=== PATIENT | female | born 1965 | race Caucasian/White ===

== ENCOUNTER 2021-01-17 13:45 | Outpatient (CLI) | payer OTHER, SELFPAY ==
--- NOTE | 2021-01-17 14:07 | MM_ITS ---
WS: [id number] BILATERAL SCREENING DIGITAL MAMMOGRAM WITH CAD HISTORY: SCREENING COMPARISON: None available. Bilateral CC and MLO views submitted. Computer aided detection analyzed. Breast composition: The breasts are heterogeneously dense, which may obscure small masses. No suspici ous masses, microcalcifications or architectural distortion. Benign appearing calcifications within t he LEFT breast. MM/[place] [id number] IMPRESSION: BI-RADS: 2-Benign FOLLOW UP: 1 Year Follow-up
== END 2021-01-17 13:46 | disposition home or self-care (01) ==
PROVIDERS: PCP Family Medicine; Visit Provider Family Medicine
DX: Z12.31 Encounter for screening mammogram for malignant neoplasm of breast (principal)
CPT/HCPCS: 77067

== ENCOUNTER 2022-02-17 08:28 | Inpatient (IN) | payer OTHER, SELFPAY ==
[2022-02-17] VITALS (44 sets, daily range): BP systolic 90–183; BP diastolic 55–108; PULSE 40–96; RESP 11–29; TEMP 36.3–36.8; O2SAT 92–100; BMI 24.1
--- NOTE | 2022-02-17 08:32 | ECG_ITS ---
[facility] Test Date: 2022-02-17 Pat Name: Esther Nicole Department: Room: ICU06 Gender: Female [employer]er: : 1965 Requested By: Govind Kovacs Order Number: [id number] Kev MD: Kwesi Ayers M.D. Measurements Intervals [place] Rate: 62 P: 59 W[place]: 150 QRS: 31 QRSD: 92 T: 75 QT: 425 QTc: 434 Interpretive Statements SINUS RHYTHM POSSIBLE LEFT ATRIAL ENLARGEMENT [-0.1mV P-WAVE IN V1/V2] INCOMPLETE RIGHT BUNDLE BRANCH BLOCK [90+ ms QRS DURATION, TERMINAL R IN V1/V2, 40+ ms S IN I/aVL/V4/V5/V6] SEPTAL MYOCARDIAL INFARCTION , OF INDETERMINATE AGE [40+ ms Q WAVE IN V1/V2] Compared to ECG 02/17/2022 08:55:19 Incomplete right bundle-branch block now present Myocardial infarct finding still present Electronically Signed On 02-17-2022 17:19:05 CDT by Kwesi Ayers M.D. [id number]
--- NOTE | 2022-02-17 09:03 | W.ED.CHESTPA ---
HPI - Chest Pain General: Chief Complaint: Chest Pain Stated Complaint: Chest Pressure Time Seen by Provider: 02/17/22 08:34 Source: patient Mode of arrival: ambulatory History of Present Illness: 56-year-old female presents emergency room complaining left-sided chest pain radiating into her back. She has intermittently had shortness of breath with activity relieved by rest she is also been having some chest discomfort relieved by rest as well its been escalating over the last week. Began yesterday and has gotten progressively worse since. She states previous episodes were just mostly short of breath now she is having actual chest discomfort. She has a history of mild COPD and smokes daily she has no known history of coronary disease no previous testing she is not diabetic. MD complaint: chest pain Onset (ago): hour(s) Timing of current episode: episodic Onset: during exertion Pain location: left chest Quality: aching and heaviness Relieving factors: rest Exacerbating factors: exertion Associated symptoms: Reports dyspnea and nausea; Deny abdominal pain, diaphoresis, fever(s), leg edema, palpitations, sense of impending doom, syncope or vomiting Treatment prior to arrival: none Review of Systems Const: Denies: fever(s) or diaphoresis ENMT: Denies: throat pain, ear or mastoid pain, nasal discharge or nasal congestion Card: Denies: palpitations or syncope Resp: Reports: dyspnea GI: Reports: nausea; Denies: abdominal pain or vomiting : Denies: flank pain, difficulty voiding, dysuria, urinary frequency or urinary urgency Skin/Breast: Denies: rash or pruritus [facility] ED PFSH: Medical History (Updated 02/17/22 @ 17:35 by Marvel Dexter DO) Hypertension Tobacco abuse Social History Smoking and tobacco status: current every day smoker Physical Exam Const: COMMON NORMALS: no acute distress GENERAL APPEARANCE: cooperative and comfortable ORIENTATION/CONSCIOUSNESS: Yes awake, Yes oriented to person, Yes oriented to place and Yes oriented to time HENMT: COMMON NORMALS: normocephalic, atraumatic and hearing grossly normal bilaterally HEAD & SCALP: normocephalic and atraumatic Resp: COMMON NORMALS: normal respiratory effort, No retractions, No use of accessory muscles and clear to auscultation bilaterally AUSCULTATION: clear to auscultation bilaterally Cardio: COMMON NORMALS: regular rate, regular rhythm and No murmurs present (Cardio) RATE: regular rate RHYTHM: regular rhythm GI: COMMON NORMALS: Soft to palpation and No hepatosplenomegaly present AUSCULTATION: Yes normoactive bowel sounds PALPATION: Yes Soft to palpation, No Tenderness to palpation present (GI), No Guarding due to palpation present (GI) and Yes No hepatosplenomegaly present Extremity: COMMON NORMALS: normal to inspection, capillary refill normal, no clubbing, cyanosis or edema, no calf tenderness and no pedal edema Neuro: SENSORIUM/ORIENTATION: Yes oriented to person, Yes oriented to place and Yes oriented to time Skin: COMMON NORMALS: no rashes or lesions noted GENERAL SKIN EXAM: no rashes or lesions noted Course Vital Signs: Vital signs: Vital Signs Temperature 97.6 F 02/17/22 14:00 Pulse Rate 77 02/17/22 16:30 Respiratory Rate 15 02/17/22 16:30 Blood Pressure 127/77 02/17/22 16:30 Pulse Oximetry 96 02/17/22 16:30 Oxygen Delivery Me thod 02/17/22 16:30 Oxygen Flow Rate 3 02/17/22 16:30 MDM - Chest Pain Medical Decision Making She is having active chest pain with ST elevation in the anterior leads and inferior reciprocal changes not fully meet criteria but did call a STEMI alert nonetheless because of her active chest discomfort her first troponin is marked elevated Dr. Haynes has seen the patient in the emergency room concurs because of her onset of symptoms and history as well as EKG changes she should go to emergent cath he assumed care patient was treated as a STEMI in the emergency room including receiving Plavix and heparin, aspirin loading doses. Medical Records I reviewed the patient's medical records. Lab Data I reviewed the patient's lab results. : 02/17/22 16:21 02/17/22 08:57 Laboratory Results WBC 14.7 10^3/uL (4.0-10.0) H 02/17/22 08:57 RBC 5.60 10^6/uL (4.1-5.3) H 02/17/22 08:57 Hgb 17.4 g/dL (11.5-15.3) H 02/17/22 08:57 Hct 50.8 % (37.0-47.0) H 02/17/22 08:57 MCV 90.7 fl (81-99) 02/17/22 08:57 MCH 31.1 pg (28.0-34.0) 02/17/22 08:57 MCHC 34.3 g/dL (30.0-36.0) 02/17/22 08:57 RDW 13.1 % (12.1-15.1) 02/17/22 08:57 Plt Count 289 10^3/cmm (130-400) 02/17/22 08:57 MPV 10.6 fL (7.4-10.4) H 02/17/22 08:57 Neut % (Auto) 79.9 % 02/17/22 08:57 Lymph % (Auto) 12.2 % 02/17/22 08:57 [place] % (Auto) 6.4 % 02/17/22 08:57 Eos % (Auto) 0.5 % 02/17/22 08:57 Baso % (Auto) 0.6 % 02/17/22 08:57 Neut # (Auto) 11.73 10^3/uL (1.8-7.7) H 02/17/22 08:57 Lymph # (Auto) 1.8 10^3/uL (0.8-4.8) 02/17/22 08:57 [place] # (Auto) 0.9 10^3/uL (0.2-0.9) 02/17/22 08:57 Eos # (Auto) 0.1 10^3/uL (0.0-0.8) 02/17/22 08:57 Baso # (Auto) 0.1 10^3/uL (0.0-0.1) 02/17/22 08:57 Nucleated RBC % (auto) 0 % 02/17/22 08:57 Nucleated RBCs # 0.0 /100WBC 02/17/22 08:57 Sodium 134 mmol/L (136-145) L 02/17/22 08:57 Potassium 3.5 mmol/L (3.5-5.1) 02/17/22 08:57 Chloride 96 mmol/L (98-107) L 02/17/22 08:57 Carbon Dioxide 24 mmol/L (22-29) 02/17/22 08:57 Anion Gap 17.5 (5-19) 02/17/22 08:57 BUN 15 mg/dL (6-20) 02/17/22 08:57 Creatinine 0.8 mg/dL (0.5-0.9) 02/17/22 08:57 GFR Calculation 73.9 mL/min (90-130) L 02/17/22 08:57 Glucose 119 mg/dL (65-115) H 02/17/22 08:57 Calculated Osmolality 280 mOsm/kg (285-295) L 02/17/22 08:57 Calcium 10.3 mg/dL (8.5-10.5) 02/17/22 08:57 Total Bilirubin 0.5 mg/dL (0.15-1.2) 02/17/22 08:57 AST 72 U/L (0-32) H 02/17/22 08:57 ALT 25 U/L (0-33) 02/17/22 08:57 Alkaline Phosphatase 132 U/L (35-105) H 02/17/22 08:57 Troponin T Baseline 470 ng/L (0-10) H* 02/17/22 08:57 NT-Pro-B Natriuret Pep 1921 pg/mL (0-125) H 02/17/22 08:57 Total Protein 8.6 g/dL (6.6-8.7) 02/17/22 08:57 Albumin 4.9 g/dL (3.5-5.2) 02/17/22 08:57 Globulin 3.7 g/dL (1.3-4.6) 02/17/22 08:57 Discharge Plan Discharge Patient Disposition: Admitted As Inpatient Admit Provider: Kwesi Ayers Clinical Impression: ST elevation myocardial infarction (STEMI), Hypertension Condition: Stable Coding Level of Care Code ED Adoption Agent for Jono Whatley
--- NOTE | 2022-02-17 09:07 | XACV_ITS ---
Exam Room: [facility] Ht: 165 cm Wt: 66 kg BSA: 1.75 m2 Gender: Female : 1965 Any Known Allergies: No known allergies Exam Priority: Routine Procedure(s): Procedure Description: Diagnostic procedure Procedure Description: PCI procedure Procedure Description: PTCA Procedure Description: Coronary Angiography Diagnostic Cath Status: Emergency Diagnostic Findings * Left Anterior Descending has mild luminal irregularities.. * Circumflex has mild to moderate 40% mid vessel stenosis. * 2nd Diagonal: moderate to severe 70% stenosis, NUVIA: 3 flow. * INDICATION: 56 year old female with past medical history of tobacco abuse, hypertension who has presented to the hospital with 1 day of on and off chest pain. She says it is severe and radiates to the back. EKG shows dynamic ST changes in anteroseptal leads and with ST depressions in inferior leads. Didnot meet STEMI criteria but given patient's dynamic EKG changes and ongoing chest pain, decision was made to emergently perform cardiac cath with possible percutaneous coronary intervention. * 1st Diagonal: subtotal occlusion, NUVIA: 3 flow. Heavily calcified vessel. * Left Main has no disease. * Proximal Right Coronary Artery: obstructive 70% stenosis, NUVIA: 3 flow. * Distal Right Coronary Artery: significant 80% stenosis, NUVIA: 3 flow. * Coronary angiography shows right dominance. PCI Status: Emergency PCI Indication: PCI for high risk Non-STEMI or unstable angina Interventional Findings * Procedure detail: Patient is left main artery with XB 3.0 guide catheter. IV heparin was administered to maintain ACT above 250 s. We advanced guidewire into diagonal artery that appeared to be the culprit for dynamic EKG changes/NSTEMI. However it was heavily calcified vessel. No balloon could be advanced. We used a guide liner for support as well. Eventually were able to cross partially with a 1.5 x 6 mm balloon. With inflation patient's diagonal artery had a dissection and loss of blood flow. After this no further equipment could be advanced. As she was hemodynamically stable, we decided to treat diagonal artery medically. We initially decided to perform PCI of RCA however after engagement of guide, it appeared it was calcified artery as well and will need arthrectomy. We decided to stage PCI of the RCA. Patient left the Working Second Hand in a stable condition.. * 1st Diagonal: 99% stenosis treated with a AB MINI TREK 2.00X12 RX BALLOON, and AB MINI TREK 1.50X6 RX BALLOON. 0% residual stenosis, NUVIA: 3 flow. Conclusions 1. Critical stenosis of 2. first diagonal artery 3. . 4. Loss of residual flow after balloon angioplasty secondary to dissection of the vessel. 5. CT surgery was consulted at [facility], and case discussed. Recommendation was to medically treat diagonal artery given patient's stability. Medical therapy. 6. Severe proximal and distal RCA stenosis. Will perform staged PCI with arthrectomy in 2 days. 7. 1st Diagonal was treated with a Balloon, and Balloon. Recommendations * Continue aspirin and Plavix. * Nitro drip. * Transferred to ICU. If has arrhythmias, * will put on amiodarone/lidocaine drip. * We will plan on performing RCA PCI as a staged procedure in 1 to 2 days. * Continue anticoagulation. Interventional RX Recommendation: PCI w/o planned CABG Diagnostic RX Recommendation: PCI w/o planned CABG Anticoagulation: Heparin Pressures Phase:Rest AO : 172 / 102 ( 133 ) @ 10:24:00 AM 122 / 70 ( 88 ) @ 10:32:00 AM 163 / 94 ( 124 ) @ 10:48:00 AM 187 / 115 ( 149 ) @ 10:59:00 AM Clinical Evaluation EBL: 5mL-10mL Procedural Details Pre-Procedure Time Out. Identified patient by full name and date of as verbalized by the patient/guarantor. Does the consent match the physician's order: N/A Emergent; Informed Consent not obtained due to time critical life threat. Accurate & Complete Informed Consent: N/A Emergent; Informed Consent not obtained due to time critical life threat. Inpatient/Outpatient History & Physical on Chart: N/A Emergent; Informed Consent not obtained due to time critical life threat. If H&P is completed, is and addenduem needed: N/A Emergent; Informed Consent not obtained due to time critical life threat; If yes, is the addendum complete: N/A Emergent; Informed Consent not obtained due to time critical life threat. Visualize and Verify Site with Patient/Guarantor: N/A. Relevant Radiology Images available: N/A Emergent; Informed Consent not obtained due to time critical life threat. Pre-op teaching completed and patient verbalized understanding. The risks, benefits, and alternatives of sedation and/or procedure were discussed by physician. The patient agrees to continue. Procedure started. [facility] Clinical Fraility Score: 3: Managing Well. Working Second Hand Indications: ACS > 24 hours. Chest Pain Symptom Assessment: Typical Angina Symptoms. Cardiovascular Instability: Yes, if yes, Persistant Ischemic Symptoms. Correct patient, site and procedure confirmed by cath team. Current diagnosis: NSTEMI. PERRLA. 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 Lungs clear x 5 lobes. IV Site on Arrival: 18 gauge in the right anticubital. IV Site on Arrival: 18 gauge in the left anticubital. IV Fluids: 0.9% NaCl at KVO. 0 mL infused prior to labor economics teacher. Pre Procedural Pulses: bilateral dorsalis pedis was 2+. Pre Procedural Pulses: bilateral posterior tibial was 2+. Pre Procedural Pulses: bilateral radial was 3+. Oxygen started at 2liters/min via nasal canula. right groin was prepped with chloroprep then draped in the usual sterile fashion. right radial was prepped with chloroprep then draped in the usual sterile fashion. Physician notified. Baseline sample Acquired. HR: 83 BPM. Patient's family in the Working Second Hand waiting room. Dr. Ayers will update at the completion of the procedure. Equipment: 6F - Radial. Cardiac Cath Pack. ACIST Manifold Kit Model BT 2000. Heparinized Saline (2 units/mL), 1000 mL bag. Physician arrived. Physician scrubbed in. Immediate Pre-Procedure Time Out. Correct Patient: N/A Emergent; Informed Consent not obtained due to time critical life threat; Correct Procedure: N/A Emergent; Informed Consent not obtained due to time critical life threat; Correct Site: N/A Emergent; Informed Consent not obtained due to time critical life threat; Correct Patient Position: N/A Emergent; Informed Consent not obtained due to time critical life threat; Correct Supplies: N/A Emergent; Informed Consent not obtained due to time critical life threat; Dried Flammable Prep: N/A Emergent; Informed Consent not obtained due to time critical life threat; Blood Products Available: N/A Emergent; Informed Consent not obtained due to time critical life threat;. Lidocaine 1% infiltrated to the right radial. Arterial access obtained. A 5 slovenian TIG catheter in over the exchange wire. Multiple views taken of left coronary artery. Current Diagnosis : STEMI. Catheter redirected to the RCA. Multiple views taken of right coronary artery. Catheter removed over the exchange wire. Add inventory: Endoflator, Exchange wire, Runthrough Guidewire. Catheter removed over the exchange wire. 6 slovenian XB 3 guide catheter was inserted over the exchange wire. Runthrough guidewire was advanced through the guide catheter to lesion in the diaganol. AB Trek 2.5 x 12 balloon in and unable to advance, removed. Inflation number : 1 A AB MINI TREK 2.00X12 RX BALLOON was prepped and advanced across the 1st Diag , then inflated to 6 SULEMAN for 0:19 seconds. Balloon out. Guideliner in. PCI Indication : PCI for high risk Non-STEMI or unstable angina. AB Trek 2.5 x 12 balloon in and unable to advance, removed. Guideliner pulled back into the guide. Baseline troponin of 470 was reported to romero nurse from the lab. Dr. Ayers made aware. Inflation number : 2 A AB MINI TREK 1.50X6 RX BALLOON was prepped and advanced across the 1st Diag , then inflated to 10 SULEMAN for 0:22 seconds. Inflation number: 3 The AB MINI TREK 1.50X6 RX BALLOON was reinflated across the 1st Diag, to 10 SULEMAN for 0:23 seconds. Balloon out. Runthrough guidewire and Guideliner out. AP pads placed on the patient. Results checked. Guide catheter out over the exchange wire. 6 slovenian JR 4 guide catheter was inserted over the exchange wire. Runthrough guidewire was advanced through the guide catheter to lesion in the distal LAD. Flushing the sheath periodically with Heparinized Saline flush to maintain patency. Wire out. Guide catheter out over the exchange. A 5 slovenian TIG catheter in over the exchange wire. Multiple views taken of left coronary artery. Catheter disengaged from the LCA. Dr. Ayers scrubbed out to consult CT surgery. Dr. Ayers scrubbed back in. Catheter removed over the exchange wire. Dr. Ayers scrubbed back out. Patient's family updated. A TR Band was successful obtaining hemostatsis at the Right Radial artery insertion site. TR band placed. Hemostasis obtained. Post Procedure: Pulses reassessed and unchanged. PERRLA. 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 No VTE prophylaxis required. Medication's Wasted: Lidocaine 1% = 4 mL. Medication's Wasted: Nitro = 49.8 mg. Medication's Wasted: Heparin = 7000 units. Medication's Wasted: Morphine = 2 mg. Medication's Wasted: Versed = 1 mg. Total IV fluids: 75 mL. PCI Indication: NSTE. Complications: none. Estimated blood loss: 5mL-10mL. Responsiveness - Normal response to verbal stimuli; alert and oriented, PERRLA. Post-op diagnosis: POBA of the 1st diagonal, Stenosis of the CX and RCA. Will stage RCA interention. Airway - Unaffected, no intervention required; spontaneous ventilation. Circulation: W/N/L, pulses unchanged. Nausea/Vomiting: No. Procedure completed. Patient transferred by wheelchair to ICU. Vital chart was stopped. Access Site Site: Right Radial artery Sheath Size: 6 Fr Hemostasis Method: TR Band Hemostasis Success: Successful Procedure Medications Start: 9:23 AM Stop: 9:23 AM Medication: Versed Amount: 1 mg Route: I.V. Start: 9:23 AM Stop: 9:23 AM Medication: Fentanyl Amount: 25 mcg Route: I.V. Start: 9:23 AM Stop: 9:23 AM Medication: Heparin Amount: 5000 units Route: I.V. Start: 9:24 AM Stop: 9:24 AM Medication: Fentanyl Amount: 25 mcg Route: I.V. Start: 9:24 AM Stop: 9:24 AM Medication: Fentanyl Amount: 25 mcg Route: I.V. Start: 9:25 AM Stop: 9:25 AM Medication: Versed Amount: 1 mg Route: I.V. Start: 9:27 AM Stop: 9:27 AM Medication: Heparin Amount: 2000 units Route: I.V. Start: 9:37 AM Stop: 9:37 AM Medication: Versed Amount: 1 mg Route: I.V. Start: 9:52 AM Stop: 9:52 AM Medication: Fentanyl Amount: 25 mcg Route: I.V. Start: 9:59 AM Stop: 9:59 AM Medication: Nitrogylcerin Amount: 10 mcg/min Route: I.V. drip Start: 10:14 AM Stop: 10:14 AM Medication: Morphine Amount: 2 mg Route: I.V. Start: 10:15 AM Stop: 10:15 AM Medication: Nitrogylcerin Amount: 15 mcg/min Route: Myron pete I, the attending physician, have reviewed and verified all procedure medications. Yes, all medications given per verbal order History/Risk Factors Hypertension: No Dyslipidemia: No Peripheral Arterial Disease (PAD): No Myocardial Infarction (AR): No Obesity: No Renal Disease: No Prior Interventions PCI: No CABG: No Valve Surgery: No Report Signatures Finalized by Kwesi Ayers MD on 02/20/2022 01:42 PM
[2022-02-17] MEDS: aspirin 325 mg Tablet PO (09:09)
[2022-02-17 09:10] LABS: Basophils # 0.1 10^3/uL (0.0-0.1); Basophils % 0.6 %; Eosinophils # 0.1 10^3/uL (0.0-0.8); Eosinophils % 0.5 %; Hematocrit 50.8 % (37.0-47.0); Hemoglobin 17.4 g/dL (11.5-15.3); Lymphocytes # 1.8 10^3/uL (0.8-4.8); Lymphocytes % 12.2 %; Mean Corpuscular HGB Conc 34.3 g/dL (30.0-36.0); Mean Corpuscular Hemoglobin 31.1 pg (28.0-34.0); Mean Corpuscular Volume 90.7 fl (81-99); Mean Platelet Volume 10.6 fL (7.4-10.4); Monocytes # 0.9 10^3/uL (0.2-0.9); Monocytes % 6.4 %; Neutrophils # 11.73 10^3/uL (1.8-7.7); Neutrophils % 79.9 %; Nucleated Red Blood Cells % 0 %; Platelet Count 289 10^3/cmm (130-400); Red Cell Distribution Width 13.1 % (12.1-15.1); White Blood Count 14.7 10^3/uL (4.0-10.0)
[2022-02-17] MEDS: clopidogrel 300 mg Tablet PO ×2 (09:10)
[2022-02-17] MEDS: sodium chloride 0.9% 1,000 ML 999 ML IV (09:11)
--- NOTE | 2022-02-17 09:14 | PM.HP ---
Providers/Chief Complaint Admitting Physician: Kwesi Ayers MD/Interventional Cardiology Primary Care Provider: Beto Peterson MD Chief Complaint: Chest Pressure History of Present Illness Esther Nicole is a 56 year old female with past medical history of tobacco abuse, hypertension who has presented to the hospital with 1 day of on and off chest pain. She says it is severe and radiates to the back. EKG shows dynamic ST changes in anteroseptal leads and with ST depressions in inferior leads. STEMI alert was ordered. Patient still having chest discomfort. Blood pressure is elevated. No prior cardiac history. Review of Systems Narrative: CONSTITUTIONAL: No fever chills weight loss or gain or night sweats. [] HEENT: Normocephalic, atraumatic.[] RESPIRATORY: No cough, sputum, hemoptysis or wheezing.[] CARDIOVASCULAR: Chest pain GI: no nausea vomiting diarrhea. [] PNEUMATIC TESTER: No numbness, tingling, weakness or loss of function in any part of the body. [] MUSCULOSKELETAL: No knee or joint pain or rashes. [] Medications/Allergies Allergies Allergy/AdvReac Type Severity Reaction Status Date / Time sulfacetamide Allergy ALGY-Rash Verified 02/17/22 08:46 [From Sulfamide] PFSH Acute PFSH: Social History Smoking and tobacco status: current every day smoker Vitals/I&O/Wt Last Vital Signs Temp 97.5 F L 02/17/22 08:46 Pulse 82 02/17/22 08:46 Resp 14 02/17/22 08:46 BP 183/95 02/17/22 08:46 Pulse Ox 98 02/17/22 08:46 O2 Del Method 02/17/22 08:46 Weight last 48 hrs Weight 145 lb Physical Exam Narrative: GENERAL: Patient is alert, awake and oriented x3. [] NECK: No jugular vein distension. [] HEENT: No cyanosis. No icterus. No pallor. [] HEART: Regular S1 and S2. LUNGS: Clear to auscultate bilaterally. [] ABDOMEN: Soft, nontender and nondistended. Positive bowel sounds. No guarding, rebound or tenderness. [] CENTRAL NERVOUS SYSTEM: Grossly nonfocal. [] EXTREMITIES: Lower extremities with no edema bilaterally. Pulses palpable in the lower extremities, both dorsalis pedis and posterior tibial. [] Data : 02/17/22 08:57 02/17/22 08:57 A&P Assessment and plan (1) NSTEMI (non-ST elevated myocardial infarction): (2) Hypertension: (3) Tobacco abuse: Plan Patient has been having chest pain symptoms has been having on and off chest pain symptoms since yesterday. EKG does not meet STEMI criteria but has dynamic changes. Initial troponin is over 400. Patient will need emergent coronary angiogram. Risks and benefits of the procedure discussed with the patient. She understands and wants to proceed. Continue aspirin and plavix We will obtain echocardiogram Attestations Medical Necessity Statement*: Expected to cross 2 midnights. Patient has presented with atypical chest pain and dynamic EKG changes. Going for emergent cardiac catheterization with possible percutaneous coronary intervention Coding Level of Care Code Acute Gas Turbine Mechanic for [facility] Diagnoses NSTEMI (non-ST elevated myocardial infarction) I21.4 Hypertension I10 Tobacco abuse Z72.0
--- NOTE | 2022-02-17 09:14 | PC.NURSE ---
Pt arrived to ED via POV with c/o left sided chest pain that was present when she woke up yesterday. reports felt like heart burn so she took Rolaids without relief, started wheezing so she used her inhaler and felt worse. today she went to the walk in clinic and was given medications for acid reflux. reports today, chest pain is a dull 8/10. denies dyspnea, reports nausea. pt states she takes 81mg ASA daily. Dr. Dexter at bedside with multiple staff members. STEMI called by Dr. Dexter. 2 IVs started. IV fluids pulled and handed to chemical laboratory scientist staff. Pt taken to chemical laboratory scientist.
[2022-02-17 09:43] LABS: Alanine Aminotransferase 25 U/L (0-33); Albumin Level 4.9 g/dL (3.5-5.2); Alkaline Phosphatase 132 U/L (35-105); Anion Gap 17.5 (5-19); Aspartate Amino Transferase 72 U/L (0-32); Blood Urea Nitrogen 15 mg/dL (6-20); Calcium 10.3 mg/dL (8.5-10.5); Carbon Dioxide 24 mmol/L (22-29); Chloride 96 mmol/L (98-107); Globulin 3.7 g/dL (1.3-4.6); Glomerular Filtration Rate 73.9 mL/min (90-130); Glucose 119 mg/dL (65-115); NT Pro B Type Natriuretic Pept 1921 pg/mL (0-125); Osmolality Calculated 280 mOsm/kg (285-295); Potassium 3.5 mmol/L (3.5-5.1); Sodium 134 mmol/L (136-145); Total Bilirubin 0.5 mg/dL (0.15-1.2); Total Protein 8.6 g/dL (6.6-8.7); Troponin(5th) Baseline 470 ng/L (0-10)
--- NOTE | 2022-02-17 10:32 | ECG_ITS ---
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 Measurements Intervals [place] Rate: 80 P: 69 ND: 147 QRS: 74 QRSD: 83 T: 82 QT: 382 QTc: 443 Interpretive Statements SINUS RHYTHM POSSIBLE RIGHT VENTRICULAR CONDUCTION DELAY [RSR (QR) IN V1/V2] SEPTAL MYOCARDIAL INFARCTION , PROBABLY RECENT [40+ ms Q WAVE IN V1/V2] ACUTE IN No previous ECG available for comparison Electronically Signed On 02-17-2022 17:24:39 CDT by Kwesi Ayers M.D. [id number]
[2022-02-17] MEDS: nitroglycerin drip 50 MG/250 ML PREMIX IV (10:35)
--- NOTE | 2022-02-17 10:40 | PC.NURSE ---
Pt arrives to ICU from slab tripper. Tr band noted on right wrist. Fingers purple and cool to touch, 2ml of air released, color and temp improved. Nitro gtt infusing at 15mcg/min, HTN noted on monitor, gtt increased to 18mcg/min. Pt denies any chest pain or other discomforts at this time.
[2022-02-17] MEDS: sodium chloride 0.9% 1,000 ML 100 ML IV ×2 (10:45→23:45)
--- NOTE | 2022-02-17 10:49 | USCV_ITS ---
Esther Nicole Age: 56 Gender: F : 1965 Exam Date: 02/17/2022 14:01 Ordering Phys: Kwesi Ayers M.D ([email or web address]) Technologist: Exam [place] [facility] [place]ication: icd stemi BP: 153 / 76 HR: 70 Rhythm: Sinus Technical Quality: Adequate MEASUREMENTS (Male / Female) Normal Values 2D ECHO LV Ejection Fraction MOD 2C 62.5 % LV Ejection Fraction 2C AL 64.1 % IVC Diameter 0.9 cm DOPPLER AV Peak Velocity 136.0 cm/s LVOT Peak Velocity 95.0 cm/s MV Area PHT 3.3 cm squared Mitral E to A Ratio 1.1 MV E' Velocity 90.0 cm/s TR Peak Velocity 146.0 cm/s TR Peak Gradient 8.5 mmHg TV Peak E Velocity 87.0 cm/s Right Atrial Pressure 3.0 mmHg Pulmonary Artery Systolic Pressu 11.5 mmHg PV Peak Velocity 136.0 cm/s FINDINGS Left Ventricle Technically limited quality echocardiogram because of poor ultrasonic windows. LV systolic function is borderline low with EF of 45 to 50%. Mildly hypokinetic anterolateral wall. Right Ventricle Normal in size and function Right Atrium Normal in size Left Atrium Normal in size Mitral Valve Mild mitral regurgitation. Aortic Valve Not well-visualized. Impella catheter is seen across aortic valve. Mild aortic regurgitation Tricuspid Valve Not well-visualized not well Pulmonic Valve Not well-visualized Pericardium Not well-visualized Aorta Grossly normal IVC Appears to be normal CONCLUSIONS Technically limited quality echocardiogram because of poor ultrasonic windows. LV systolic function is borderline low with EF of 45 to 50%. Mildly hypokinetic anterolateral wall. Valvular structures are not well-visualized Mild mitral regurgitation Mild aortic regurgitation is seen. Impella catheter is seen across aortic valve. It was suggested with echocardiogram guidance. No comparison studies are available Kwesi Ayers MD (Electronically Signed) Final Date: 17 February 2022 18:08 S
[2022-02-17] MEDS: atropine 1 mg/mL SDV 1 mL 0.5 MG IVP ×2 (11:15→11:30)
--- NOTE | 2022-02-17 11:19 | ECG_ITS ---
[facility] Test Date: 2022-02-17 Pat Name: Esther Nicole Department: Room: [facility] Gender: Female Roll Up Operator: : 1965 Requested By: Govind Kovacs Order Number: [id number] Kev MD: Kwesi Ayers M.D. Measurements Intervals Dewey Rate: 42 P: MS: QRS: 80 QRSD: 101 T: 100 QT: 521 QTc: 439 Interpretive Statements SINUS BRADYCARDIA WITH 2ND DEGREE AV BLOCK, 2:1 OR MOBITZ TYPE II MARKED ST ELEVATION, CONSIDER INFERIOR INJURY [MARKED ST ELEVATION W/O NORMALLY INFLECTED T-WAVE IN II/aVF] ACUTE AK Compared to ECG 02/17/2022 11:06:16 ST (T wave) deviation now present Sinus rhythm no longer present Incomplete right bundle-branch block no longer present Myocardial infarct finding still present Electronically Signed On 02-17-2022 17:23:50 CDT by Kwesi Ayers M.D. [id number]
--- NOTE | 2022-02-17 11:26 | XACV_ITS ---
Exam Room: [facility] Ht: 165 cm Wt: 66 kg BSA: 1.75 m2 Gender: Female : 1965 Any Known Allergies: No known allergies Exam Priority: Routine Procedure(s): Procedure Description: Diagnostic procedure Procedure Description: PCI procedure Procedure Description: Drug Eluting Coronary Stent Procedure Description: PTCA Procedure Description: Coronary Thrombectomy Procedure Description: Miscellaneous Procedure Description: Temporary Pacemaker Insertion Procedure Description: Perclose Procedure Description: ACT Procedure Description: Coronary Angiography Procedure Description: pVAD Diagnostic Cath Status: Emergency Diagnostic Findings * INDICATION: Patient underwent coronary angiogram 1-2 hours back which showed critical, heavily calcified diagonal artery stenosis and severe proximal to mid and distal RCA stenosis. We attempted PCI of diagonal artery. Wire was crossed however no other equipment would follow. Eventually we were able to put a small 1.5 mm balloon and diagonal artery. After balloon angioplasty, patient had a dissection of diagonal artery and lost flow. No other equipment could be advanced. I did discuss the case with CT surgeon, Dr. Quezada at [facility] about possible CT surgical intervention. After discussion, decision was made to medically treat the diagonal at this time. RCA also had calcified stenosis. We decided to intervene is a staged procedure with arthrectomy. * Patient was transferred to ICU. In the ICU she complained of chest pain. EKG showed complete heart block with transient ST elevation in inferior leads that resolved after administration of atropine. She became hypotensive and was given IV fluids. She was emergently took her to cardiac Radio Electronics Technician. Complete heart block resolved spontaneously. . * Left Main has mild luminal irregularities. Left circumflex artery was patent however is moderate to stenosis of mid segment. First diagonal artery that had a dissection previous procedure started regaining blood flow. Second diagonal artery has 70% stenosis. LAD has mild to moderate luminal irregularities of no significant stenosis. For full diagnostic report please refer to prior cardiac catheterization report from the same day. During her current procedure only 1 view was obtained to confirm patency of previously patent vessels.. * Proximal to Mid Right Coronary Artery: subtotal thrombotic occlusion, NUVIA: 3 flow. Thrombus formation was new compared to recent angiogram on the same day.. * Distal Right Coronary Artery to Distal Right Coronary Artery: significant 80% stenosis, NUVIA: 3 flow. * Coronary angiography shows right dominance. PCI Status: Emergency PCI Indication: Other Interventional Findings * Procedure detail: We obtained access in right common femoral artery. Using diagnostic JR4 catheter we obtained RCA angiogram. It showed proximal RCA had developed thrombus and was subtotally occluded. Given patient's transient hemodynamic instability and presence of NUVIA II flow in the artery, in addition to recently dissected diagonal artery, we decided to first place LV support device. We obtained access in left common femoral artery. It was preclosed with Perclose. We then we then inserted Impella into the LV. Access was also obtained in right common femoral vein for possible placement of temporary pacemaker given patient's transient complete heart block. However there was some difficulty placing temporary pacemaker and we decided to first proceed with PCI. We then engaged RCA with JR4 guide catheter. IV heparin was administered to maintain ACT above 250 s. 0.014 run-through guidewire was used to cross the stenosis and was advanced into the distal vessel. We used CAT Rx thrombectomy catheter to perform mechanical thrombectomy. We then predilated proximal RCA stenosis with 2.75 x 12 mm semicompliant balloon. This was followed by placement of 3.5 x 34 mm resolute Waqar drug-eluting stent. Same balloon was used to predilate distal RCA stenosis. We then placed 3.0 x 26 mm resolute Waqar drug-eluting stent to the distal RCA. At this time final angiogram was performed that showed excellent stent expansion, no residual stenosis and NUVIA-3 flow. Impella peel-away sheath was removed and Impella was sutured in place to go to ICU. Patient's rhythm was stable and she was hemodynamically stable. No further chest pain.. * Proximal to Mid Right Coronary Artery: 99% stenosis treated with a AB TREK 2.75X12 RX BALLOON, and MDT R WAQAR 3.5X34 BALTA. 0% residual stenosis, NUVIA: 3 flow. * Distal Right Coronary Artery to Distal Right Coronary Artery: 80% stenosis treated with a MDT R WAQAR 3.0X26 BALTA. 0% residual stenosis, NUVIA: 3 flow. Conclusions 1. Subtotal thrombotic occlusion of proximal RCA 2. status post successful revascularization with mechanical thrombectomy and 3. BALTA x1. Distal RCA treated with BALTA x1.. 4. Successful insertion of Impella support device given patient's recent dissection and shutdown of diagonal artery and current subtotal thrombotic occlusion of RCA with hemodynamic and rhythm instability. 5. Mid Right Coronary Artery was treated with a Balloon, and Drug Eluting Stent. 6. Distal Right Coronary Artery to Distal Right Coronary Artery was treated with a Drug Eluting Stent. Recommendations * Transfer to ICU. * Order echocardiogram to confirm Impella positioning. * Aspirin and Plavix. * Aggrastat drip for 4 hours. * High intensity statin therapy. Interventional RX Recommendation: PCI w/o planned CABG Diagnostic RX Recommendation: PCI w/o planned CABG Anticoagulation: Heparin Pressures Phase:Rest AO : 89 / 66 ( 77 ) @ 1:37:00 PM 75 / 58 ( 67 ) @ 1:42:00 PM Clinical Evaluation EBL: 30-40ml Procedural Details Procedure Consent Obtained. Admit Source: In Patient. Pre-Procedure Time Out. Identified patient by full name and date of as verbalized by the patient/guarantor. Does the consent match the physician's order: Yes. Accurate & Complete Informed Consent: Yes. Inpatient/Outpatient History & Physical on Chart: Yes. If H&P is completed, is and addenduem needed: N/A; If yes, is the addendum complete: N/A. Visualize and Verify Site with Patient/Guarantor: N/A. Relevant Radiology Images available: N/A. Pre-op teaching completed and patient verbalized understanding. The risks, benefits, and alternatives of sedation and/or procedure were discussed by physician. The patient agrees to continue. Procedure started. Current diagnosis: Unstable angina. Correct patient, site and procedure confirmed by cath team. Cardiovascular Instability: Yes, if yes, Persistant Ischemic Symptoms. Chest Pain Symptom Assessment: Typical Angina Symptoms. Radio Electronics Technician Indications: Worsening Angina. PERRLA. Strong, equal hand moving picture operator bilaterally. Lungs clear x 5 lobes. IV Site on Arrival: 18 gauge in the left anticubital. IV Site on Arrival: 18 gauge in the right anticubital. IV Fluids: 0.9% NaCl at KVO. 700 mL infused prior to laborer cutting tool. Pre Procedural Pulses: bilateral dorsalis pedis was 2+. Oxygen started at 2liters/min via nasal canula. right groin was prepped with chloroprep then draped in the usual sterile fashion. left groin was prepped with chloroprep then draped in the usual sterile fashion. Physician notified. Physician notified. Baseline sample Acquired. HR: 74 BPM. Physician arrived. Physician scrubbed in. Immediate Pre-Procedure Time Out. Correct Patient: Yes; Correct Procedure: Yes; Correct Site: Yes; Correct Patient Position: Yes; Correct Supplies: Yes; Dried Flammable Prep: Yes; Blood Products Available: N/A;. Lidocaine 1% infiltrated to the right groin. Arterial access obtained with micropuncture set. A 5 comoran JR4 catheter in over wire. Temporary pacemaker inserted. Temporary pacemaker removed. Lidocaine 1% infiltrated to the left groin. Arterial access obtained with micropuncture set. Multiple views taken of right coronary artery. 6Fr sheath removed, 1st Perclose loaded over the wire. Lot # [id number] Exp 09/01/2023. Anesthesia here to perform sedation d/t pt restless and unable to follow commands appropriately. 2nd Perclose inserted over the wire to L femoral side. Lot# [id number] Exp 09/01/2023. 6Fr Sheath reinserted into L femoral vein. Standard Wire out. Impella wire inserted into L femoral side. 6Fr sheath removed from L femoral side, 8Fr dilator inserted. 8Fr dilator removed from L femoral side, 12 Fr dilator inserted. 12 Fr dilator removed from L femoral side. 12 Fr sheath inserted into L femoral site. Wire removed. ACT drawn. Results 186 seconds. Therapeutic limits - pre-heparin administration 90-150 seconds and monitoring heparin during a vascular procedure >250 seconds. A 5 comoran Angled Pig catheter in over wire and positioned across the valve. Standard wire removed. Impella wire inserted. Catheter out. Impella CP inserted. Impella wire removed. ACT drawn. Results 306 seconds. Therapeutic limits - pre-heparin administration 90-150 seconds and monitoring heparin during a vascular procedure >250 seconds. Impella CP adequately postioned across the valve with a flow of 2.6 l/min. 6 comoran JR 4 guide catheter was inserted over the wire to R femoral artery access site. Runthrough guidewire was advanced through the guide catheter to lesion in the mid RCA. Cat RX device inserted into the RCA over the wire. Coronary thrombectomy performed to RCA. Results checked. Balloon inserted to lesion in the mid RCA. Inflation number : 1 A AB TREK 2.75X12 RX BALLOON was prepped and advanced across the Mid RCA , then inflated to 14 SULEMAN for 0:10 seconds. Inflation number: 2 The AB TREK 2.75X12 RX BALLOON was reinflated across the Mid RCA, to 14 SULEMAN for 0:12 seconds. Inflation number: 3 The AB TREK 2.75X12 RX BALLOON was reinflated across the Mid RCA, to 14 SULEMAN for 0:11 seconds. Balloon out. Inflation Number : 4 A MDT R WAQAR 3.5X34 BALTA -Lot Number# [id number] Exp 11/12/2024 was prepped and advanced across the Mid RCA. The stent was deployed at 12 SULEMAN for 0:15 seconds. Stent inserted to lesion in the mid RCA. Stent inserted to lesion in the distal RCA. Inflation Number : 1 A MDT R WAQAR 3.0X26 BALTA -Lot Number# [id number] Exp 01/24/2024 was prepped and advanced across the Dist RCA. The stent was deployed at 12 SULEMAN for 0:20 seconds. Stent balloon out over wire. Results checked. Results checked. Wire out. ACT drawn. Results reading high.Rechecking ACT. Standard wire inserted. Catheter removed. A 5 comoran JL4 catheter in over wire. Multiple views taken of left coronary artery. Catheter removed over the standard wire. ACT drawn. Results 316 seconds. Therapeutic limits - pre-heparin administration 90-150 seconds and monitoring heparin during a vascular procedure >250 seconds. Safe sheath peeled away from Impella device. Impella device sutured into place to L femoral. A Suture was successful obtaining hemostatsis at the Right Femoral artery insertion site. A Suture was successful obtaining hemostatsis at the Right Femoral vein insertion site. Sheath(s) sutured into position with 2-0 silk and sterile 4x4's and Op-site applied over the site. No oozing or signs and symptoms of hematoma noted. Arterial sheath flushed and connected to tranducer and pressure bag with heparinized saline. Post Procedure: Pulses reassessed and unchanged. No VTE prophylaxis required. PERRLA. Strong, equal hand moving picture operator bilaterally. Medication's Wasted: Other = Fentanyl 50 mcg. Medication's Wasted: Other = Versed 1 mg. Total IV fluids: 1068 mL. PCI Indication: New Onset Angina. Post-op diagnosis: Subtotal Thrombotic Occlusion of RCA. Complications: none. Estimated blood loss:30-40ml. Responsiveness - Normal response to verbal stimuli; alert and oriented, PERRLA. Airway - Unaffected, no intervention required; spontaneous ventilation. Circulation: W/N/L, pulses unchanged. Nausea/Vomiting: No. Procedure completed. Patient transferred by bed to ICU. Patient's family updated. Vital chart was stopped. Access Site Site: Right Femoral artery Sheath Size: 6 Fr Hemostasis Method: Suture Hemostasis Success: Successful Site: Right Femoral vein Sheath Size: 6 Fr Hemostasis Method: Suture Hemostasis Success: Successful Site: Left Femoral vein Sheath Size: 6 Fr Hemostasis Success: Successful Procedure Medications Start: 11:43 AM Stop: 11:43 AM Medication: Versed Amount: 1 mg Route: I.V. Start: 11:48 AM Stop: 11:48 AM Medication: Versed Amount: 1 mg Route: I.V. Start: 11:59 AM Stop: 11:59 AM Medication: Fentanyl Amount: 50 mcg Route: I.V. Start: 12:03 PM Stop: 12:03 PM Medication: Heparin Amount: 2000 units Route: I.V. Start: 12:14 PM Stop: 12:14 PM Medication: Heparin Amount: 1000 units Route: I.V. Start: 12:15 PM Stop: 12:15 PM Medication: Heparin Amount: 4000 units Route: I.V. Start: 12:29 PM Stop: 12:29 PM Medication: 0.9% Saline Amount: 250 ml Route: I.V. bolus Start: 12:46 PM Stop: 12:46 PM Medication: Heparin Amount: 2000 units Route: I.V. I, the attending physician, have reviewed and verified all procedure medications. Yes, all medications given per verbal order History/Risk Factors Hypertension: No Dyslipidemia: No Peripheral Arterial Disease (PAD): No Myocardial Infarction (AZ): No Obesity: No Renal Disease: No Prior Interventions PCI: No CABG: No Valve Surgery: No Report Signatures Finalized by Kwesi Ayers MD on 02/20/2022 02:05 PM
[2022-02-17 11:40] LABS: Troponin 5 2HR 495.6 ng/L (0-10)
--- NOTE | 2022-02-17 11:40 | PC.NURSE ---
At 1115 Bradycardia noted on monitor 42 bpm. Pt asypmtomatic. While looking at monitor , heart decreases to 29, then back to 35. Dr Ayers notified via telephone, STAT Atropine 0.5mg orders. Atropine given. B/P drops, SBP 55, Nitro gtt off, IV fluids wide open. Dr Ayers now at bedside. Pt denying chest pain. Saying she still needs to pee. Crash cart at bedside. Heart rate 40, SBP 79. Bedpan provided, pt is insisting she needs to urinate. Pt becoming symptomatic: resp. shallow, becoming lethargic. Another 0.5mg Atropine admin. Pt stating she needs the head of the bed up so she can breath. Nasal cannula applied at 3lpm/NC. Pt unable to urinate. Eldridge ordered and 16fr eldridge inserted, no urine return. labor arbitrator crew here, pt to labor contract analyst. remained at bedside throughout.
[2022-02-17 11:41] LABS: Troponin 5 2HR Delta 25.6 ABS# (0-10)
--- NOTE | 2022-02-17 13:20 | PC.NURSE ---
Report given to RENAY Fine. Care transferred.
--- NOTE | 2022-02-17 13:48 | PC.NURSE ---
Pt arrives back to ICU from phlebotomist medical lab assistant. Impella noted , left groin oozing. No hematoma noted. Impella marked at 83. Impella Rep,Jimenez, at bedside. Arterial sheath noted in right groin, no hematoma or bleeding noted at tis site. Sinus rhythm on monitor.
--- NOTE | 2022-02-17 14:15 | PC.NURSE ---
Left groin site very oozy, Dressing changed and pressure held by Brandi Gaona rep. PTT ordered.
[2022-02-17] MEDS: metoprolol tartrate 25 mg Tablet PO (15:23)
[2022-02-17 15:35] LABS: Troponin 5 6HR Delta 223.3 ng/L (0-12)
[2022-02-17 15:36] LABS: Troponin 5 6HR 693.3 ng/L (0-10)
--- NOTE | 2022-02-17 16:00 | PC.NURSE ---
Left groin continues to bleed, Pedal pulses weak but palpable. Bed line and dressing change provided. Pressure dressing applied.
[2022-02-17 16:26] LABS: Partial Thromboplastin Time > 250.0 SECONDS (23.9-36.7)
[2022-02-17 16:47] LABS: Hematocrit 44.8 % (37.0-47.0); Hemoglobin 15.1 g/dL (11.5-15.3)
--- NOTE | 2022-02-17 17:00 | PC.NURSE ---
Dr Ayers, now on unit. Changed dressing to left groin, femstop applied. May remove when PTT less than 75.
--- NOTE | 2022-02-17 17:04 | P.MISC_ITS ---
Miscellaneous Note Purpose of Documentation: Brief progress note Note: Patient underwent coronary angiogram which showed critical, heavily calcified diagonal artery stenosis and severe proximal to mid and distal RCA stenosis. We attempted PCI of diagonal artery. Wire was crossed however no other equipment would follow. Eventually we were able to put a small 1.5 mm balloon and diagonal artery. After balloon angioplasty, patient had a dissection of diagonal artery and lost flow. No other equipment could be advanced. I did discuss the case with CT surgeon, Dr. Quezada at [facility] about possible CT surgical intervention. After discussion, decision was made to medically treat the diagonal at this time. RCA also had calcified stenosis. We decided to intervene is a staged procedure with arthrectomy. Patient was transferred to ICU. In the ICU she complained of chest pain. EKG showed complete heart block with transient ST elevation in inferior leads that resolved after administration of atropine. She became hypotensive and was given IV fluids. She was emergently took her to cardiac Hydrostatic Tubing Tester. Complete heart block resolved spontaneously. Coronary angiogram was performed that showed thrombus formation and proximal to mid RCA. Impella was placed as patient was becoming transiently hypotensive, had occluded diagonal artery and developed thrombus of RCA. She was also drowsy,feeling very weak and agitated. Anesthesia team was called to help with sedation. We then proceeded with revascularization of RCA with BALTA x2. Impella was kept in place as patient is having ongoing diagonal artery territory infarct. Patient's blood pressure stabilized. She was chest pain-free postprocedure. Will monitor hemoglobin and labs closely.
[2022-02-17 17:46] LABS: Partial Thromboplastin Time 60.9 SECONDS (23.9-36.7)
--- NOTE | 2022-02-17 17:51 | PC.NURSE ---
PTT finally resulted: greater than 250. Dr Ayers notified of high level and continued bleeding at site.
--- NOTE | 2022-02-17 18:45 | PC.NURSE ---
Dr Ayers, now at bedside, Femstop loosened by Dr Ayers. PTT 60.9. May remove in one hour.
--- NOTE | 2022-02-17 18:55 | PC.NURSE ---
IMPELLA alarm: Suction. Decreased flow to P-6. Suction problem resolved.
--- NOTE | 2022-02-17 19:10 | PC.NURSE ---
Bedside report completed with Tia Palacios RN
[2022-02-17 19:11] LABS: Basophils # 0.1 10^3/uL (0.0-0.1); Basophils % 0.5 %; Eosinophils % 0.2 %; Hemoglobin 14.4 g/dL (11.5-15.3); Lymphocytes # 1.1 10^3/uL (0.8-4.8); Mean Corpuscular HGB Conc 34.3 g/dL (30.0-36.0); Mean Corpuscular Hemoglobin 31.2 pg (28.0-34.0); Mean Corpuscular Volume 90.9 fl (81-99); Monocytes # 1.3 10^3/uL (0.2-0.9); Neutrophils # 15.72 10^3/uL (1.8-7.7); Neutrophils % 85.6 %; Nucleated Red Blood Cells % 0 %; Platelet Count 284 10^3/cmm (130-400); Red Blood Count 4.62 10^6/uL (4.1-5.3); Red Cell Distribution Width 13.3 % (12.1-15.1); White Blood Count 18.4 10^3/uL (4.0-10.0)
--- NOTE | 2022-02-17 19:35 | PC.NURSE ---
Shift Note: Pt has had an eventful day. She remains alert and oriented She came back from lab rep this am with a TR band and nitro gtt at 15mcg/min. BP was elevated and Nitro gtt increased to 18mcg/min. She had been in ICU for half hour when she said she needed to urinate. Her heart rate decreased while staff in room, Atropine admin, Nasal cannula at 3lpm applied, Nitro gtt stopped and IV fluids wide open, pt was asymptomatic at first then rapidly declined. Pt was taken back to lab rep. She came back to ICU with 2 stents and a thrombectomy, on Impella pump. Pt has tolerated it well See is exhausted, trying to sleep, multiple fmaily member in and out of room demanding her attention. Sinus rhythm noted on monitor with no ectopy. Impella remains patent, decreased to P-6. Left groin site was very oozy with multiple dressing changes and femstop finally place. Right groin arterial sheath intact with good wave form. NO chest pain reported. Pt complained of some nausea but it seemed to resolve on it's own. Adelaida has over 1400 ml of clear yellow output Frequent safety and comfort rounds continue. Orders and/or nursing care completed as indicated. Patient monitored for response to intervention and treatment(s). Education provided includes metoprolol, femstop, nitro, impella, heparin, plan of care and progress. Patient and/or apprenticeship representative verbalized understanding to paln of care, progress and medications and procedures discussed. Will continue to monitor.
--- NOTE | 2022-02-17 22:09 | PC.NURSE ---
Heparin Procine is to be a continuous drip used with Impella per Dr. Ayers's orders. Order on jul reflected as a one time order. Order replaced to reflect a continuous drip. Titrating on the order that was originally scanned per pharmacy instructions. New order placed to reflect an active order as this order is to be continuous.
--- NOTE | 2022-02-17 23:12 | PC.NURSE ---
Impella Alarm Suction alarmed instructing to turn flow control down. Flow control titrated to P-5.
[2022-02-17 23:13] LABS: Partial Thromboplastin Time 29.7 SECONDS (23.9-36.7)
--- NOTE | 2022-02-17 23:14 | PC.NURSE ---
Addendum entered by Tia Palacios RN 02/18/22 07:00: Dr. Ayers informed of PTT 29.7. Dr. Ayers confirmed that purge fluids is D5W with Heparin. No new orders at this time. Addendum entered by Tia Palacios RN 02/17/22 23:34: Dr. Ayers notified of change in patient. Labs ordered. Potassium 3.2. Telephone order for Potassium 40meq IV ONCE. Will notify physician with any other concerns or changes with patient. Original Note: Patient had approx. 20 beats of SVT. Heart rate 170's. Blood pressure dropped to 50's/30's. Patient was/is asymptomatic. Blood pressure currently 119/82. Oxygen sats 92% on Cpap, Heart rate 88. Patient resting resting quietly with eyes closed with respirations of 20.
[2022-02-17 23:22] LABS: Anion Gap 13.2 (5-19); Blood Urea Nitrogen 16 mg/dL (6-20); Calcium 8.7 mg/dL (8.5-10.5); Carbon Dioxide 20 mmol/L (22-29); Chloride 102 mmol/L (98-107); Glomerular Filtration Rate 86.2 mL/min (90-130); Glucose 145 mg/dL (65-115); Osmolality Calculated 278 mOsm/kg (285-295); Potassium 3.2 mmol/L (3.5-5.1); Sodium 132 mmol/L (136-145)
[2022-02-18] VITALS (55 sets, daily range): BP systolic 91–120; BP diastolic 57–80; PULSE 88–109; RESP 17–28; TEMP 36.8–36.9; O2SAT 90–97
[2022-02-18] MEDS: lidocaine 1% 5 ML in potassium chloride premix 100 ML 25 ML IV (00:03)
--- NOTE | 2022-02-18 01:00 | PC.NURSE ---
Impella alarm 0040 suctions. Instructed to turn flow control down. Flow control now P-4.
--- NOTE | 2022-02-18 01:08 | PC.NURSE ---
Patient had a 19 beat run of SVT. BP dropped to 50's/30's, oxygen saturations dropped. Dr. Ayers notified. Gave order to start amiodarone with loading bolus if prolonged SVT over one minute. Vitals currently: HR 97, Blood pressure 116/60, Oxygen saturation 93, Respirations 20. Patient complained of flutter feeling at time of episode. No chest pain or shortness of breath.
[2022-02-18 02:19] LABS: Basophils # 0.1 10^3/uL (0.0-0.1); Basophils % 0.4 %; Eosinophils % 0.1 %; Hematocrit 36.7 % (37.0-47.0); Hemoglobin 12.5 g/dL (11.5-15.3); Lymphocytes # 1.7 10^3/uL (0.8-4.8); Lymphocytes % 11.1 %; Mean Corpuscular HGB Conc 34.1 g/dL (30.0-36.0); Mean Corpuscular Hemoglobin 31.2 pg (28.0-34.0); Mean Corpuscular Volume 91.5 fl (81-99); Mean Platelet Volume 10.9 fL (7.4-10.4); Monocytes # 1.4 10^3/uL (0.2-0.9); Monocytes % 9.1 %; Neutrophils # 12.28 10^3/uL (1.8-7.7); Neutrophils % 78.7 %; Nucleated Red Blood Cells % 0 %; Platelet Count 228 10^3/cmm (130-400); Red Blood Count 4.01 10^6/uL (4.1-5.3); Red Cell Distribution Width 13.2 % (12.1-15.1); White Blood Count 15.6 10^3/uL (4.0-10.0)
[2022-02-18 02:37] LABS: Partial Thromboplastin Time 31.5 SECONDS (23.9-36.7)
--- NOTE | 2022-02-18 04:11 | XRR_ITS ---
PROCEDURE INFORMATION: Exam: XR Chest Exam date and time: 02/18/2022 4:48 AM Age: 56 years old Clinical indication: Other: F/u mi; Prior surgery; Surgery date: Post-operative (0-2 days); Patient HX: F/u post mi with placement of cardiac impella. TECHNIQUE: Imaging protocol: Radiologic exam of the chest. Views: 1 view. COMPARISON: No relevant prior studies available. FINDINGS: Lungs: Normal lung volumes. No interstitial or airspace opacities. Some scattered bilateral lung calcified granulomas are seen, the largest in the right mid lung zone. Pleural spaces: No pleural effusion. No pneumothorax. Heart/Mediastinum: Normal heart size. Calcified mediastinal lymph nodes are seen, right greater than left. This is consistent with old granulomatous disease. Normal mediastinal contour. Midline trachea. Bones/joints: No acute abnormalities. Soft tissues: Multiple external densities are seen overlying the chest, limiting assessment. XR/XR chest 1V portable [id number] IMPRESSION: No chest radiographic evidence of acute cardiopulmonary disease.
--- NOTE | 2022-02-18 06:32 | NUR.SHIFT ---
Patient was able to rest well through the night. Had several episodes of SVT. Blood pressure and oxygen saturations decreased with each episode. Longest episode this morning was 20 seconds long. Patient became dizzy and lightheaded with BP and O2 Sats dropping. Impella site has periodic slight oozing. Dorsal Pedal pulses diminished but palpable. Patient did not have any complaints of pain. Patient has been turned every two hours at minimum.
--- NOTE | 2022-02-18 06:50 | PC.NURSE ---
Bedside report completed with Tia Palacios RN.
[2022-02-18 07:42] LABS: Anion Gap 12.3 (5-19); Blood Urea Nitrogen 14 mg/dL (6-20); Calcium 8.3 mg/dL (8.5-10.5); Carbon Dioxide 21 mmol/L (22-29); Chloride 102 mmol/L (98-107); Glucose 122 mg/dL (65-115); Osmolality Calculated 276 mOsm/kg (285-295); Potassium 3.3 mmol/L (3.5-5.1); Sodium 132 mmol/L (136-145)
[2022-02-18 07:43] LABS: Lactate Dehydrogenase 776 U/L (135-214)
--- NOTE | 2022-02-18 08:02 | PC.NURSE ---
Consulted and discussed care with Brandi Gaona, via telephone. No changes necessary at this time.
[2022-02-18] MEDS: clopidogrel 75 mg Tablet PO (08:57)
[2022-02-18] MEDS: metoprolol tartrate 25 mg Tablet 12.5 MG PO ×2 (08:58→20:06)
[2022-02-18] MEDS: aspirin 81 mg EC Tablet PO (08:58)
[2022-02-18] MEDS: potassium chloride premix 100 ML 25 MEQ IV (08:58)
--- NOTE | 2022-02-18 09:00 | PC.NURSE ---
Dr Ayers, at bedside, verbal order to decrease Impella Flow to P-3. Flow rate changed as ordered.
[2022-02-18] MEDS: sodium chloride 0.9% 1,000 ML 100 ML IV ×2 (09:06→19:40)
--- NOTE | 2022-02-18 10:10 | PC.NURSE ---
PTT: Lab here to draw blood. This nurse cancelled PTT at this time as pt to go back to laborer high density press and get Impella removed within the next hour.
--- NOTE | 2022-02-18 10:30 | PC.NURSE ---
veterinary laboratory diagnostician crew here, pt to recyclable materials sorter
--- NOTE | 2022-02-18 10:51 | P.HPUD_ITS ---
Surgery/Procedure H&P Update DATE OF PROCEDURE: February 18, 2022 DATE H&P PERFORMED: 02/17/22 H&P UPDATE INFORMATION: I have reviewed H&P completed within last 30 days, I have examined patient prior to procedure and No changes to prior documentation PREOP DIAGNOSIS: NSTEMI PRIMARY INDICATION FOR PROCEDURE: Patient brought to laborer carpentry dock for impella removal PLANNED PROCEDURE: Impella removal PATIENT REASSESSED PRIOR TO SEDATION, WITH NO CHANGE NOTED: Yes PHYSICAL EXAM: alert, oriented x 3, clear to auscultation bilaterally and regular rate & rhythm AIRWAY EVAL/ANESTHESIA PLAN: ASA III, Local Anesthesia, Risks, benefits & alternatives of sedation and/or procedure discussed and Patient agrees to continue as planned ADDITIONAL INFORMATION: Moderate sedation
--- NOTE | 2022-02-18 12:00 | PC.NURSE ---
Pt back to ICU from label designer Right groin site drainage noted under dressing, dressing intact. No hematoma noted. Left groin site dressing intact, slight amount of drainage under dressing. NO hematomas at that site. Pt laert and oriented.
--- NOTE | 2022-02-18 12:14 | PM.PN ---
Subjective Subjective: Patient is doing better today. She underwent successful revascularization of RCA with BALTA x2 yesterday. Impella was kept in place overnight. Today blood pressure is stable. Denying any chest pain. Impella removed and Perclose deployed and patient has stayed stable. Vitals/I&O/Wt Last Vital Signs Temp 98.2 F 02/18/22 05:26 Pulse 101 H 02/18/22 12:00 Resp 22 H 02/18/22 12:00 BP 117/73 02/18/22 12:00 Pulse Ox 96 02/18/22 12:00 O2 Del Method 02/18/22 12:00 O2 Flow Rate 3 02/17/22 16:30 FiO2 21 02/17/22 21:16 02/17/22 02/18/22 02/18/22 22:59 06:59 14:59 Intake Total 1016.5 / 2020.145 705 / 2725.145 1185 / 1185 Output Total 1625 / 1625 465 / 2090 600 / 600 Balance -608.5 / 395.145 240 / 635.145 585 / 585 Weight last 48 hrs Weight 145 lb Physical Exam Narrative: GENERAL: Patient is alert, awake and oriented x3. [] NECK: No jugular vein distension. [] HEENT: No cyanosis. No icterus. No pallor. [] HEART: Regular S1 and S2. No murmur, rub or gallop. [] LUNGS: Clear to auscultate bilaterally. [] ABDOMEN: Soft CENTRAL NERVOUS SYSTEM: Grossly nonfocal. [] EXTREMITIES: Lower extremities with 1+ edema bilaterally. Urinary Catheter Management: Pedro: Cath Placed During This Visit: yes Reason for Continuing Indwelling Catheter: Accurate Measurement of Urinary Output in Critically Ill Patients Urinary Catheter Date of Insertion: 02/17/22 Urinary Catheter Time of Insertion: 11:35 Data : 02/18/22 02:11 02/18/22 06:52 A&P Assessment and plan (1) NSTEMI (non-ST elevated myocardial infarction): (2) Hypertension: (3) Tobacco abuse: (4) Complete heart block: Plan Patient had coronary angiogram performed yesterday emergently. Diagonal artery had severe, heavily calcified ostial to proximal stenosis. No equipment could be crossed. Eventually we were able to cross with small 1.5 balloon. However with balloon inflation flow was lost to the vessel. No further treatment could be advanced. We decided to medically treated. Patient went back to ICU and after 1 to 2 hours developed complete heart block and severe chest pain. She became hypotensive. She was found to have ST elevations in inferior leads. She was brought back emergently to the cardiac Seismograph Observer. She had thrombus in proximal to mid RCA. Given her hemodynamic instability, ongoing chest pain and dissected and infarcting diagonal artery territory, we decided to put her on LV support with Impella insertion. Thrombectomy was performed with penumbra. RCA underwent successful revascularization with BALTA x2. Impella was left in place overnight. She has been stable. Impella removed and Perclose deployed in cardiac Seismograph Observer today. She is stable postprocedure. Continue aspirin and Plavix for at least 1 year. Echocardiogram shows mild reduction of LV systolic function High intensity statin therapy Smoking cessation advised Beta-nathaly therapy with metoprolol Attestations Medical Necessity Statement*: Care expected to cross 2 midnight. Patient had presented with non-ST elevation MT and underwent successful revascularization of RCA with BALTA x2. She also had dissection and total occlusion of diagonal artery. She is stable. Impella has been removed. Depending on blood progress she may stay in the hospital for 1-2 more days. Coding Level of Care Code Acute Insurance Account Executive for Jono Whatley Diagnoses NSTEMI (non-ST elevated myocardial infarction) I21.4 Hypertension I10 Tobacco abuse Z72.0 Complete heart block I44.2
--- NOTE | 2022-02-18 15:02 | PC.NURSE ---
Bedside report completed with RENAY Fine. Care transferred.
--- NOTE | 2022-02-18 15:20 | PC.NURSE ---
assumed care at this time
--- NOTE | 2022-02-18 15:39 | PM.PROC ---
Procedure Note: Pre-procedure diagnosis: Left common femoral artery impella Post-procedure diagnosis: other (Post Impella removal and perclose deployment) Procedure: Procedure: Impella removal and closure of access site with Perclose Patient was brought to the cardiac Medical Receptionist Medical Assistant for Impella removal. Impella was present in the left common femoral artery. We prepped the bilateral groins in the sterile fashion. Patient also had right femoral arterial and venous sheaths in place. Impella was removed and pressure held. Access site had been preclosed yesterday however those sutures did not work and were removed. Single Perclose was successfully deployed. Hemostasis was achieved with dopplerable pulses in left foot. We then removed right common femoral artery 6 Turkish sheath and Perclose was deployed to obtain hemostasis. Right common femoral venous sheath was removed and manual pressure was held. Patient left the Medical Receptionist Medical Assistant in a stable condition Complications: None Condition: stable Disposition: ICU Coding Level of Care Code Acute Crm Marketing Specialist for Jono Whatley
--- NOTE | 2022-02-18 18:36 | PC.NURSE ---
attempted to get patient out of bed, HR got to 130s and sustained while sitting on side of bed patient remained asymptomatic, positioned patient back in bed HR down to one teens to low 120s with rest at this time sustaining mostly in the one teens, patient AO x4 no SOB or chest pain
[2022-02-18] MEDS: atorvastatin 40 mg Tablet PO (20:06)
[2022-02-19] VITALS (36 sets, daily range): BP systolic 92–149; BP diastolic 57–91; PULSE 89–117; RESP 15–29; TEMP 37.2; O2SAT 92–100
[2022-02-19 05:01] LABS: Basophils # 0.1 10^3/uL (0.0-0.1); Basophils % 0.6 %; Eosinophils # 0.1 10^3/uL (0.0-0.8); Hematocrit 27.7 % (37.0-47.0); Lymphocytes # 1.4 10^3/uL (0.8-4.8); Lymphocytes % 13.8 %; Mean Corpuscular HGB Conc 32.5 g/dL (30.0-36.0); Mean Corpuscular Hemoglobin 30.8 pg (28.0-34.0); Mean Corpuscular Volume 94.9 fl (81-99); Monocytes # 1.1 10^3/uL (0.2-0.9); Monocytes % 10.6 %; Neutrophils % 73.5 %; Nucleated Red Blood Cells % 0 %; Platelet Count 149 10^3/cmm (130-400); Red Blood Count 2.92 10^6/uL (4.1-5.3); Red Cell Distribution Width 13.3 % (12.1-15.1); White Blood Count 10.3 10^3/uL (4.0-10.0)
[2022-02-19 05:28] LABS: Anion Gap 12.2 (5-19); Blood Urea Nitrogen 10 mg/dL (6-20); Calcium 8.3 mg/dL (8.5-10.5); Carbon Dioxide 21 mmol/L (22-29); Chloride 107 mmol/L (98-107); Glomerular Filtration Rate 86.2 mL/min (90-130); Glucose 118 mg/dL (65-115); Osmolality Calculated 284 mOsm/kg (285-295); Potassium 3.2 mmol/L (3.5-5.1); Sodium 137 mmol/L (136-145)
--- NOTE | 2022-02-19 06:55 | PC.NURSE ---
Bedside report completed with Jessica Ballesteros RN.
--- NOTE | 2022-02-19 07:13 | PC.NURSE ---
Shift Note Frequent safety and comfort rounds continue. Orders and/or nursing care completed as indicated. Patient monitored for response to intervention and treatment(s). Education provided includes treatment plan. Patient verbalized understanding of teaching. Patient had an uneventful shift, remains alert/oriented x4 on room air. Denies pain overnight. Will continue to monitor.
[2022-02-19] MEDS: sodium chloride 0.9% 1,000 ML 100 ML IV (08:18)
[2022-02-19] MEDS: metoprolol tartrate 25 mg Tablet 12.5 MG PO (08:19)
[2022-02-19] MEDS: aspirin 81 mg EC Tablet PO (08:20)
[2022-02-19] MEDS: clopidogrel 75 mg Tablet PO (08:20)
--- NOTE | 2022-02-19 09:15 | PM.PN ---
Subjective Subjective: Patient is stable. Denies any complaints of chest pain. Hemoglobin has come down however, hemodynamically stable. Vitals/I&O/Wt Last Vital Signs Temp 98.5 F 02/18/22 13:30 Pulse 100 02/19/22 06:00 Resp 23 H 02/18/22 14:30 BP 101/70 02/18/22 14:30 Pulse Ox 95 02/18/22 23:28 O2 Del Method 02/18/22 14:30 O2 Flow Rate 3 02/17/22 16:30 FiO2 21 02/18/22 23:28 02/18/22 02/19/22 02/19/22 22:59 06:59 14:59 Intake Total 1400 / 3088.667 2000 / 5088.667 Output Total 1150 / 2500 1200 / 3700 Balance 250 / 588.667 800 / 1388.667 Physical Exam Narrative: GENERAL: Patient is alert, awake and oriented x3. [] NECK: No jugular vein distension. [] HEENT: No cyanosis. No icterus. No pallor. [] HEART: Regular S1 and S2. No murmur, rub or gallop. [] LUNGS: Clear to auscultate bilaterally. [] ABDOMEN: Soft CENTRAL NERVOUS SYSTEM: Grossly nonfocal. [] EXTREMITIES: Lower extremities with 1+ edema bilaterally. Urinary Catheter Management: Pedro: Cath Placed During This Visit: yes Reason for Continuing Indwelling Catheter: Accurate Measurement of Urinary Output in Critically Ill Patients Urinary Catheter Date of Insertion: 02/17/22 Urinary Catheter Time of Insertion: 11:35 Data : 02/19/22 04:47 02/19/22 04:47 A&P Assessment and plan (1) NSTEMI (non-ST elevated myocardial infarction): (2) Hypertension: (3) Tobacco abuse: (4) Complete heart block: Plan Patient had coronary angiogram performed yesterday emergently. Diagonal artery had severe, heavily calcified ostial to proximal stenosis. No equipment could be crossed. Eventually we were able to cross with small 1.5 balloon. However with balloon inflation flow was lost to the vessel. No further treatment could be advanced. We decided to medically treated. Patient went back to ICU and after 1 to 2 hours developed complete heart block and severe chest pain. She became hypotensive. She was found to have ST elevations in inferior leads. She was brought back emergently to the cardiac [employer]. She had thrombus in proximal to mid RCA. Given her hemodynamic instability, ongoing chest pain and dissected and infarcting diagonal artery territory, we decided to put her on LV support with Impella insertion. Thrombectomy was performed with penumbra. RCA underwent successful revascularization with BALTA x2. Impella was left in place overnight. She has been stable. Impella removed and Perclose deployed in cardiac [employer] yesterday. She is stable postprocedure. Continue aspirin and Plavix for at least 1 year. Continue atorvastatin. We will continue with metoprolol 12.5 mg twice daily at this time. Her hemoglobin has dropped. We will obtain a CBC in the evening. He had no hemodynamic instability. Likely secondary to dilution and hemolysis when Impella was in place. If patient stays stable, can plan for discharge tomorrow Attestations Medical Necessity Statement*: Care expected to cross 2 midnights. Patient had presented with acute MA. Impella was put in place which was removed yesterday. She is improving. Plan for possible discharge tomorrow. Coding Level of Care Code Acute Bleach Boiler Packer for Jono Whatley Diagnoses NSTEMI (non-ST elevated myocardial infarction) I21.4 Hypertension I10 Tobacco abuse Z72.0 Complete heart block I44.2
--- NOTE | 2022-02-19 10:30 | PC.NURSE ---
Pt up in chair and/Or BSC. BM noted. Pt completed ADLs without s/s of distress or fatigue.
[2022-02-19] MEDS: potassium chloride ER 20 mEq Tablet 40 MEQ PO (11:28)
[2022-02-19] MEDS: potassium chloride premix 100 ML 25 MEQ IV (11:28)
--- NOTE | 2022-02-19 16:30 | PC.NURSE ---
Pt up in unit, ambulated completed around unit with no s/s of distress. Heart rate 131 while ambulating, no ectopy . Immediately recovered to 115 after she sat in chair in room. O2 sats remained 96% or greater.
--- NOTE | 2022-02-19 17:10 | PC.NURSE ---
STENT CARD given to pt and . Instructed to keep in her wallet. Smoking cessation, exercise and rest, Cardiac rehab discussed. Pt and verbalized understanding.
--- NOTE | 2022-02-19 19:30 | PC.NURSE ---
Bedside report completed with RENAY Chawla
--- NOTE | 2022-02-19 20:21 | PC.NURSE ---
Shift Note: Pt has been up in room some today. She has ambulated and did her ADLs in preparation for Discharge tomorrow. NO s/s of distress, chest, etc. today. Pt states she feels better. Her potassium level was low, she requires replacement: PO and IV, part of the IV replacement was delayed due to IV access. Dr Ayers was notified of the occurrence. has been at bedside, very supportive and attentive. Pedro cath removed today. BM noted today. Frequent safety and comfort rounds continue. Orders and/or nursing care completed as indicated. Patient monitored for response to intervention and treatment(s). Education provided includes smoking cessation, walking, rest and exercise, cardiac rehab, potassium and plan of care. Patient and/or parts representative verbalized understanding of plan of care and all discussed education topics. . Will continue to monitor.
[2022-02-19] MEDS: atorvastatin 40 mg Tablet PO (20:27)
[2022-02-19] MEDS: metoprolol tartrate 25 mg Tablet PO (20:27)
[2022-02-20] VITALS (46 sets, daily range): BP systolic 78–117; BP diastolic 35–74; PULSE 81–104; RESP 13–28; TEMP 36.5–36.6; O2SAT 93–98
[2022-02-20 04:36] LABS: Basophils # 0.1 10^3/uL (0.0-0.1); Basophils % 0.6 %; Eosinophils # 0.3 10^3/uL (0.0-0.8); Eosinophils % 2.9 %; Hematocrit 25.8 % (37.0-47.0); Hemoglobin 8.3 g/dL (11.5-15.3); Lymphocytes # 1.7 10^3/uL (0.8-4.8); Lymphocytes % 17.3 %; Mean Corpuscular HGB Conc 32.2 g/dL (30.0-36.0); Mean Corpuscular Hemoglobin 30.6 pg (28.0-34.0); Mean Corpuscular Volume 95.2 fl (81-99); Monocytes % 10.2 %; Neutrophils # 6.66 10^3/uL (1.8-7.7); Neutrophils % 68.6 %; Nucleated Red Blood Cells % 0 %; Platelet Count 151 10^3/cmm (130-400); Red Blood Count 2.71 10^6/uL (4.1-5.3); Red Cell Distribution Width 13.1 % (12.1-15.1); White Blood Count 9.7 10^3/uL (4.0-10.0)
[2022-02-20 04:51] LABS: Anion Gap 12.9 (5-19); Blood Urea Nitrogen 11 mg/dL (6-20); Calcium 8.5 mg/dL (8.5-10.5); Carbon Dioxide 21 mmol/L (22-29); Chloride 107 mmol/L (98-107); Glucose 107 mg/dL (65-115); Osmolality Calculated 284 mOsm/kg (285-295); Potassium 3.9 mmol/L (3.5-5.1); Sodium 137 mmol/L (136-145)
[2022-02-20] MEDS: aspirin 81 mg EC Tablet PO (09:18)
[2022-02-20] MEDS: metoprolol tartrate 25 mg Tablet PO ×2 (09:18→20:30)
[2022-02-20] MEDS: clopidogrel 75 mg Tablet PO (09:18)
--- NOTE | 2022-02-20 09:51 | P.CONIM_ITS ---
Providers/Reason For Consult Consulting Physician/Specialty*: Wilian Trinh MD Reason for Consult*: Anemia Requesting Physician: Dr. Ayers Attending Physician: Kwesi Ayers M.D Primary Care Provider: Beto Peterson MD History of Present Illness History of Present Illness Esther Nicole is a 56 year old female who presented to the hospital originally with chest discomfort and concern for ST elevation myocardial infar ction on February. At that time she was taken directly to the carpenter labor supervisor, where heavily calcified diagonal artery was intervened upon. Unfortunately this vessel was not able to be crossed, and procedure was eventually abandoned and medical treatment ensued in the ICU. In the ICU she became more unstable was taken back to the [facility] [employer] and a thrombus was found in her RCA. There is some notation perhaps the diagonal artery was dissected at that time. Thrombus in the RCA was removed and drug-eluting stents placed in the RCA. An Impella was placed at that time. Following this she has had gradual improvement. Hemoglobin was 17.4 on admission, likely hemoconcentrated, with hemoglobin today of 8.3. Family and nursing reports some oozing from the left groin site following Impella insertion but quantity is not really known. No other significant estimated blood loss is known. She denies any severe heartburn or epigastric discomfort currently. She has had a bowel movement that does not appear to have blood within the last 24 hours. Initially, after the Impella was removed she had some significant tachycardia when arising that could have correlated with significant acute blood loss. Currently she denies any abdominal pain, back pain, nausea, chest discomfort or other symptoms. Review of Systems General: Reports: 10 or more systems reviewed and unremarkable except in HPI and below Const: Denies: fever(s) or chills Eyes: Denies: change in vision ENMT: Denies: throat pain Card: Denies: chest pain Resp: Denies: dyspnea GI: Denies: abdominal pain, nausea, vomiting, hematochezia or melena : Denies: flank pain Musc: Denies: neck pain or back pain Skin/Breast: Denies: rash Neuro: Denies: headache(s) Psych: Denies: anxiety or depression Endo: Denies: polyuria Jerardo/Lymph: Denies: easy bruising All/Imm: Denies: urticaria Medications/Allergies Home Medications Medication Instructions Recorded Confirmed Last Taken Type albuterol sulfate 0.63 mg/3 mL 0.83 mg inhalation QID PRN 02/17/22 02/17/22 Unknown History solution for nebulization breathing difficulty hydrochlorothiazide 25 mg tablet 25 mg PO DAILY 02/17/22 02/17/22 02/17/22 06:00 History metoprolol succinate 100 mg 100 mg PO DAILY 02/17/22 02/17/22 02/17/22 06:00 History tablet,extended release 24 hr montelukast 10 mg tablet 10 mg PO DAILY 02/17/22 02/17/22 02/17/22 06:00 History topiramate 100 mg tablet 100 mg PO DAILY 02/17/22 02/17/22 02/17/22 06:00 History Allergies Allergy/AdvReac Type Severity Reaction Status Date / Time sulfacetamide Allergy ALGY-Rash Verified 02/17/22 08:46 [From Sulfamide] Current Medications Generic Name Dose Route Start Last Admin Trade Name Freq PRN Reason Stop Dose Admin Aspirin 81 mg 02/18/22 08:40 02/20/22 09:18 Aspirin 81 Mg Ec Tablet PO 81 mg DAILY BHAVESH Administration Atorvastatin Calcium 40 mg 02/18/22 21:00 02/19/22 20:27 Atorvastatin 40 Mg Tablet PO 40 mg BEDTIME BHAVESH Administration Clopidogrel Bisulfate 75 mg 02/18/22 08:45 02/20/22 09:18 Clopidogrel 75 Mg Tablet PO 75 mg DAILY BHAVESH Administration Nitroglycerin/Dextrose 50 mg in 250 mls @ 0 mls/hr 02/17/22 11:00 02/19/22 11:31 Nitroglycerin Drip IV Infused .Q0M BHAVESH Titration Protocol Per Protocol Metoprolol Tartrate 25 mg 02/19/22 21:00 02/20/22 09:18 Metoprolol Tartrate 25 Mg Tablet PO 25 mg BID@0900,2100 BHAVESH Administration PFSH Acute PFSH: Medical History (Updated 02/20/22 @ 10:55 by Wilian Trinh MD) Coronary artery disease Hypertension Ischemic cardiomyopathy Tobacco abuse Surgical History (Updated 02/20/22 @ 10:50 by Wilian Trinh MD) History of bladder surgery History of cholecystectomy History of hysterectomy Family History (Updated 02/20/22 @ 10:50 by Wilian Trinh MD) Other CAD (coronary artery disease) Cancer Social History (Updated 02/20/22 @ 10:50 by Wilian Trinh MD) Smoking and tobacco status: current every day smoker Alcohol intake: current Alcohol intake frequency: few times a month Vitals/I&O/Wt Last Vital Signs Temp 97.7 F 02/20/22 08:17 Pulse 95 02/20/22 08:17 Resp 18 02/20/22 08:17 BP 91/57 02/20/22 08:17 Pulse Ox 96 02/20/22 08:17 O2 Del Method 02/20/22 08:17 O2 Flow Rate 3 02/17/22 16:30 FiO2 21 02/19/22 22:38 02/19/22 02/20/22 02/20/22 22:59 06:59 14:59 Intake Total 1061.667 / 2250.000 Output Total 0 / 1000 Balance 1061.667 / 1250.000 0 / 1250.000 Physical Exam Narrative: General exam is no apparent distress HEENT: Atraumatic normocephalic. Pupils equally round. Oropharynx clear Neck is supple no lymphadenopathy thyromegaly Cardiovascular regular rate and rhythm without murmur. Borderline tachycardic. Lungs clear no wheezing or crackles Abdomen is soft nontender with positive bowel sounds Back no bruising exam demonstrates both groins with slight bruising, but no severe bruising and no evidence of any pulsatile hematoma. Right wrist with slight bruising but no significant hematoma. Extremities no cyanosis clubbing or edema, cap refill brisk Skin no rash Neuro no obvious focal deficits. Urinary Catheter Management: Pedro: Cath Placed During This Visit: yes, but has since been removed by the nurse Reason for Continuing Indwelling Catheter: Decision to DC Catheter Urinary Catheter Date of Insertion: 02/17/22 Urinary Catheter Time of Insertion: 11:35 Date Urinary Catheter Removed: 02/19/22 Time Urinary Catheter Discontinued: 09:00 Data : 02/20/22 04:16 02/20/22 04:16 A&P Assessment and plan (1) Anemia: Patient has significant anemia, which appears to be acute blood loss anemia. I have ordered testing and she has no evidence of hemolysis. Secondary to the profound amount of anemia since admission, retroperitoneal hematoma should be ruled out. CT scan ordered. Currently she has not significantly symptomatic with her anemia. We will repeat her hemoglobin this afternoon. Hold on transfusion currently. I will discuss with cardiology. Certainly if she has any ischemia symptoms would need to go ahead with transfusion. Note that she is on Plavix and aspirin. There is no evidence clinically of ongoing blood loss. CT scan result will be available prior to any further doses of this. Add Protonix prophylactically (2) Ischemic cardiomyopathy: Patient with ischemic cardiomyopathy after myocardial infarction with EF now 45 to 50% (3) Coronary artery disease: Status post myocardial infarction, stenting of RCA Currently on Plavix, aspirin, beta-nathaly (4) Tobacco abuse: Counseled on abstinence Plan Other medical problems as outlined in past medical history Thank you for this consultation I will follow-up on CT scan. If develops symptoms with her anemia consider transfusion Consult Attestations Medical Necessity Statement: As per primary Coding Level of Care Code Acute Pilot Boat Operator for Jono Whatley Diagnoses Anemia D64.9 Ischemic cardiomyopathy I25.5 Coronary artery disease I25.10 Tobacco abuse Z72.0
[2022-02-20 10:33] LABS: Alanine Aminotransferase 16 U/L (0-33); Albumin Level 2.8 g/dL (3.5-5.2); Alkaline Phosphatase 72 U/L (35-105); Aspartate Amino Transferase 28 U/L (0-32); Globulin 3.2 g/dL (1.3-4.6); Total Bilirubin 0.2 mg/dL (0.15-1.2)
--- NOTE | 2022-02-20 10:35 | CTR_ITS ---
PROCEDURE INFORMATION: Exam: CT Abdomen And Pelvis With Contrast Exam date and time: 02/20/2022 2:51 PM Age: 56 years old Clinical indication: Condition or disease; Other: Anemia; Patient HX: Status post myocardial infarction, stenting of rca; Additional info: Anemia, rule out retroperitoneal hematoma/acute blood loss. On plavix and aspirin. TECHNIQUE: Imaging protocol: Computed tomography of the abdomen and pelvis with contrast. Sagittal and coronal reformatted images were created and reviewed. Radiation optimization: All CT scans at this facility use at least one of these dose optimization techniques: automated exposure control; mA and/or kV adjustment per patient size (includes targeted exams where dose is matched to clinical indication); or iterative reconstruction. Contrast material: OMNI 350; Contrast volume: 100 ml; Contrast route: INTRAVENOUS (IV); COMPARISON: CR (CHEST, ) 02/18/2022 4:48 AM RADIATION DOSE METRICS: Total DLP (mGy-cm): 410.39 FINDINGS: Lungs: Calcified granulomas in the right lower lobe. There is linear scarring in right and left lower lobes. Pleural spaces: No pleural effusion. Heart: Visualized heart size is unremarkable. Moderate atherosclerotic calcification in the visualized coronary arteries. Liver: The liver is unremarkable. Gallbladder and bile ducts: Patient has had a previous cholecystectomy. Pancreas: The pancreas is unremarkable. No pancreatic ductal dilatation. Spleen: Multiple calcified granulomas in the spleen. Multiple calcified granulomas in the spleen. Adrenal glands: The right and left adrenal glands are unremarkable. Kidneys and ureters: The right and left kidneys are unremarkable. The right and left ureters are unremarkable. Stomach and bowel: No obstruction. No mucosal thickening. Appendix: The appendix is visualized and is unremarkable. No findings to suggest acute appendicitis. Intraperitoneal space: No free intraperitoneal air. No ascites. No intraperitoneal hemorrhage. No loculated fluid collections to suggest an abscess. Retroperitoneal space: No retroperitoneal hemorrhage. Vasculature: Moderate atherosclerotic changes in the visualized arteries. No evidence for aortic aneurysm or aortic dissection. Hepatic veins, portal veins, splenic vein, and SMV are patent. No extravasation of contrast from the abdominopelvic vessels. Lymph nodes: No lymphadenopathy. Urinary bladder: Small amount of air in the bladder. Reproductive: Patient has had a previous hysterectomy. The right and left ovaries are unremarkable. Bones/joints: Degenerative changes in the spine, sacroiliac joints, and hips. Soft tissues: Mild inflammation in the right and left inguinal regions, this may be due to a prior iatrogenic procedure. CT/CT abdomen pelvis w con* [id number] IMPRESSION: 1. Small amount of air in the bladder. This may be iatrogenic related to recent catheterization. If this is not the case, then cystitis would be a consideration. Recommend clinical correlation. 2. No evidence for active bleeding in the abdomen or pelvis. No evidence for intraperitoneal or retroperitoneal hemorrhage. 3. Mild inflammation in the right and left inguinal regions, this may be due to a prior iatrogenic procedure. Recommend clinical correlation. 4. Incidental/nonacute findings are listed in the report.
[2022-02-20] MEDS: pantoprazole DR 40 mg Tablet PO (12:02)
--- NOTE | 2022-02-20 12:52 | PC.CHAP ---
x Pastoral Care Encounter/Spiritual Assessment Type of Contact [] Declined plumbing manager visit [] Patient/Family/Request visit [] Outpatient visit [] Follow-up visit [] Physician referral [] Code/Alert [x] Routine visit [] Staff referral [] Actively dying [] Patient sleeping [] Family support [] [] Out of room [] Palliative care [] [] Receiving care in room [] Pre-surgical visit [] Trauma [] Long length of stay [x] ICU visit [] Other: Relational/Emotional Strength [] Patient feels connected with others/family/visitors/staff [] Distress [] Loneliness/isolation [] Abandonment Spirituality of Patient [] Person of [place] [] Attends [employer] of their [place] [] Believes in Prayer [] Reads Bible or Restoration materials [] There are Spiritual issues to be addressed Truck Terminal Manager Interventions [x] Prayer [] Active listening [] Non-anxious presence [] Spiritual/emotional support [] Crisis/trauma care [] Spiritual counseling [] Bereavement support [] Provided bereavement packet [] Provided Bible/devotional materials [] Provided toy/stuffed animal, coloring book to patient or family member [] Provided Communion [] Anointing/[place] [] Salvation [x] Completed spiritual assessment [] Other: Impact on Illness or Injury [] Angry [] Fearful [] Anxious [] Often cries [] Exhaustion [] Unable to work [] Unable to attend religious [] Unable to walk/stand [] Unable to read [] Unable to drive [] Unable to eat/drink [] Unable to sleep [] Unable to be with family [] Patient intubated [] Other: Summary Time spent with patient
[2022-02-20 14:41] LABS: Hematocrit 26.5 % (37.0-47.0); Hemoglobin 8.6 g/dL (11.5-15.3)
[2022-02-20] MEDS: iohexol 350 mg/mL 100 mL Btl IV (15:00)
--- NOTE | 2022-02-20 17:11 | P.PN_ITS ---
Subjective Subjective: Patient is doing well. No chest pain. Hemoglobin continues to drop. Vitals/I&O/Wt Last Vital Signs Temp 97.7 F 02/20/22 08:17 Pulse 96 02/20/22 14:00 Resp 23 H 02/20/22 14:00 BP 100/55 02/20/22 12:30 Pulse Ox 94 02/20/22 14:00 O2 Del Method 02/20/22 10:00 O2 Flow Rate 3 02/17/22 16:30 FiO2 21 02/19/22 22:38 02/20/22 02/20/22 02/20/22 06:59 14:59 22:59 Intake Total 240 / 240 Output Total 0 / 1000 Balance 0 / 1250.000 240 / 240 Physical Exam Narrative: GENERAL: Patient is alert, awake and oriented x3. [] NECK: No jugular vein distension. [] HEENT: No cyanosis. No icterus. No pallor. [] HEART: Regular S1 and S2. No murmur, rub or gallop. [] LUNGS: Clear to auscultate bilaterally. [] ABDOMEN: Soft CENTRAL NERVOUS SYSTEM: Grossly nonfocal. [] EXTREMITIES: Lower extremities with no edema bilaterally. Urinary Catheter Management: Pedro: Cath Placed During This Visit: yes, but has since been removed by the nurse Reason for Continuing Indwelling Catheter: Decision to DC Catheter Urinary Catheter Date of Insertion: 02/17/22 Urinary Catheter Time of Insertion: 11:35 Date Urinary Catheter Removed: 02/19/22 Time Urinary Catheter Discontinued: 09:00 Data : 02/20/22 14:16 02/20/22 04:16 A&P Assessment and plan (1) NSTEMI (non-ST elevated myocardial infarction): (2) Hypertension: (3) Tobacco abuse: (4) Complete heart block: Plan Patient had coronary angiogram performed yesterday emergently. Diagonal artery had severe, heavily calcified ostial to proximal stenosis. No equipment could be crossed. Eventually we were able to cross with small 1.5 balloon. However with balloon inflation flow was lost to the vessel. No further treatment could be advanced. We decided to medically treated. Patient went back to ICU and after 1 to 2 hours developed complete heart block and severe chest pain. She became hypotensive. She was found to have ST elevations in inferior leads. She was brought back emergently to the cardiac Forestry Extension Specialist. She had thrombus in proximal to mid RCA. Given her hemodynamic instability, ongoing chest pain and dissected and infarcting diagonal artery territory, we decided to put her on LV support with Impella insertion. Thrombectomy was performed with penumbra. RCA underwent successful revascularization with BALTA x2. Impella was left in place overnight. She has been stable. Impella removed and Perclose deployed in cardiac Forestry Extension Specialist yesterday. She is stable postprocedure. Continue aspirin and Plavix for at least 1 year. Continue atorvastatin. Metoprolol uptitrated Medicine team consulted for workup of anemia. CTA performed which does not show retroperitoneal hematoma No hemolysis on labs today. Likely anemia is from blood loss from oozing around impella sheath and dilution with IV fluids If patient's hemoglobin stays stable, we will discharge her tomorrow. Attestations Medical Necessity Statement*: Care expected to cross 2 midnights. Patient is stable but anemia has worsened, we will workup anemia today and will discharge likely tomorrow. Coding Level of Care Code Acute Block Placer for Jono Whatley Diagnoses NSTEMI (non-ST elevated myocardial infarction) I21.4 Hypertension I10 Tobacco abuse Z72.0 Complete heart block I44.2
--- NOTE | 2022-02-20 19:22 | PC.NURSE ---
Bedside report received from RENAY Howard.
[2022-02-20] MEDS: atorvastatin 40 mg Tablet PO (20:30)
[2022-02-21] VITALS (17 sets, daily range): BP systolic 85–100; BP diastolic 52–77; PULSE 79–98; RESP 17–29; TEMP 36.8; O2SAT 91–95
[2022-02-21 04:06] LABS: Basophils # 0.1 10^3/uL (0.0-0.1); Basophils % 0.6 %; Eosinophils # 0.4 10^3/uL (0.0-0.8); Eosinophils % 4.6 %; Hematocrit 24.8 % (37.0-47.0); Hemoglobin 8.2 g/dL (11.5-15.3); Lymphocytes # 1.2 10^3/uL (0.8-4.8); Mean Corpuscular HGB Conc 33.1 g/dL (30.0-36.0); Mean Corpuscular Hemoglobin 30.9 pg (28.0-34.0); Mean Corpuscular Volume 93.6 fl (81-99); Mean Platelet Volume 10.6 fL (7.4-10.4); Monocytes # 0.7 10^3/uL (0.2-0.9); Monocytes % 8.4 %; Neutrophils # 6.16 10^3/uL (1.8-7.7); Neutrophils % 71.8 %; Nucleated Red Blood Cells % 0 %; Platelet Count 171 10^3/cmm (130-400); Red Blood Count 2.65 10^6/uL (4.1-5.3); White Blood Count 8.6 10^3/uL (4.0-10.0)
--- NOTE | 2022-02-21 07:35 | P.DS_ITS ---
Discharge Providers Date of Admission: 02/17/22 09:34 Date of Discharge: February 21, 2022 Attending Provider at Admission: Kwesi Ayers M.D Attending Provider at Discharge: Kwesi Ayers M.D Primary Care Provider: Beto Peterson MD Diagnoses at Discharge Discharge Diagnosis (1) NSTEMI (non-ST elevated myocardial infarction): Status: Acute (2) Hypertension: Status: Acute (3) Tobacco abuse: Status: Acute (4) Complete heart block: Status: Acute Reason for Visit Reason for Visit: Chest Pressure Brief History: 56 year old female with past medical history of tobacco abuse, hypertension who has presented to the hospital with 1 day of on and off chest pain.? She says it is severe and radiates to the back.? EKG shows dynamic ST changes in anteroseptal leads and with ST depressions in inferior leads.? STEMI alert was ordered.? Patient still having chest discomfort.? Blood pressure is elevated.? No prior cardiac history. Hospital Course Hospital Course Patient had coronary angiogram performed emergently.? Diagonal artery had severe, heavily calcified ostial to proximal stenosis.? No equipment could be crossed.? Eventually we were able to cross with small 1.5 balloon.? However with balloon inflation flow was lost to the vessel.? No further treatment could be advanced.? We decided to medically treated.? Patient went back to ICU and after 1 to 2 hours developed complete heart block and severe chest pain.? She became hypotensive.? She was found to have ST elevations in inferior leads.? She was brought back emergently to the cardiac Scholastic Aptitude Test Grader.? She had thrombus in proximal to mid RCA.? Given her hemodynamic instability, ongoing chest pain and dissected and infarcting diagonal artery territory, we decided to put her on LV support with Impella insertion.? Thrombectomy was performed with penumbra.? RCA underwent successful revascularization with BALTA x2.? Impella was left in place overnight.? Impella removed and Perclose deployed in cardiac Scholastic Aptitude Test Grader. Patient still chest pain-free and stabilized afterwards. Patient's hemoglobin dropped significantly. We performed work-up ruling out retroperitoneal hematoma, no hemolysis was seen on labs post Impella removal. Patient stayed hemodynamically stable. Medicine team helped with work-up of anemia, appreciate recs. plan for discharge home today. We will start Protonix and start her on iron replacement. We will also check CBC in 3 days. Physical Exam Narrative: GENERAL: Patient is alert, awake and oriented x3. [] NECK: No jugular vein distension. [] HEENT: No cyanosis. No icterus. No pallor. [] HEART: Regular S1 and S2. No murmur, rub or gallop. [] LUNGS: Clear to auscultate bilaterally. [] ABDOMEN: Soft CENTRAL NERVOUS SYSTEM: Grossly nonfocal. [] EXTREMITIES: Lower extremities with no edema bilaterally. Urinary Catheter Management: Pedro: Cath Placed During This Visit: yes, but has since been removed by the nurse Reason for Continuing Indwelling Catheter: Decision to DC Catheter Urinary Catheter Date of Insertion: 02/17/22 Urinary Catheter Time of Insertion: 11:35 Date Urinary Catheter Removed: 02/19/22 Time Urinary Catheter Discontinued: 09:00 Discharge Data Studies Completed and Pending Completed Studies During Hospitalization Category Date Time Status CT abdomen pelvis w con* [id number] Urgent Cat Scan 02/20/22 10:35 Completed PURCHASING BUYER request for service Routine Exams 02/18/22 08:59 Completed PURCHASING BUYER request for service Stat Exams 02/17/22 09:07 Completed PURCHASING BUYER request for service Stat Exams 02/17/22 11:26 Completed CXRP [XR chest 1V portable [id number]] Routine Exams 02/18/22 04:11 Completed CV. echo complete* [id number] Urgent Ultrasound 02/17/22 10:49 Completed Pending at discharge Category Date Time Status Leukocyte Reduced RBC Routine Lab 02/20/22 09:50 Results Type and Screen Routine Lab 02/20/22 09:50 Results Radiology Impressions Chest X-Ray 02/18/22 04:11 IMPRESSION: No chest radiographic evidence of acute cardiopulmonary disease. Abdomen/Pelvis CT 02/20/22 10:35 IMPRESSION: 1. Small amount of air in the bladder. This may be iatrogenic related to recent catheterization. If this is not the case, then cystitis would be a consideration. Recommend clinical correlation. 2. No evidence for active bleeding in the abdomen or pelvis. No evidence for intraperitoneal or retroperitoneal hemorrhage. 3. Mild inflammation in the right and left inguinal regions, this may be due to a prior iatrogenic procedure. Recommend clinical correlation. 4. Incidental/nonacute findings are listed in the report. Laboratory Results WBC 8.6 10^3/uL (4.0-10.0) 02/21/22 03:40 RBC 2.65 10^6/uL (4.1-5.3) L 02/21/22 03:40 Hgb 8.2 g/dL (11.5-15.3) L 02/21/22 03:40 Hct 24.8 % (37.0-47.0) L 02/21/22 03:40 MCV 93.6 fl (81-99) 02/21/22 03:40 MCH 30.9 pg (28.0-34.0) 02/21/22 03:40 MCHC 33.1 g/dL (30.0-36.0) 02/21/22 03:40 RDW 13.0 % (12.1-15.1) 02/21/22 03:40 Plt Count 171 10^3/cmm (130-400) 02/21/22 03:40 MPV 10.6 fL (7.4-10.4) H 02/21/22 03:40 Neut % (Auto) 71.8 % 02/21/22 03:40 Lymph % (Auto) 14.0 % 02/21/22 03:40 Eagle % (Auto) 8.4 % 02/21/22 03:40 Eos % (Auto) 4.6 % 02/21/22 03:40 Baso % (Auto) 0.6 % 02/21/22 03:40 Neut # (Auto) 6.16 10^3/uL (1.8-7.7) 02/21/22 03:40 Lymph # (Auto) 1.2 10^3/uL (0.8-4.8) 02/21/22 03:40 Eagle # (Auto) 0.7 10^3/uL (0.2-0.9) 02/21/22 03:40 Eos # (Auto) 0.4 10^3/uL (0.0-0.8) 02/21/22 03:40 Baso # (Auto) 0.1 10^3/uL (0.0-0.1) 02/21/22 03:40 Nucleated RBC % (auto) 0 % 02/21/22 03:40 Nucleated RBCs # 0.0 /100WBC 02/21/22 03:40 Haptoglobin 173.0 mg/L (30-200) 02/20/22 04:16 APTT 31.0 SECONDS (23.9-36.7) 02/18/22 06:52 Sodium 137 mmol/L (136-145) 02/20/22 04:16 Potassium 3.9 mmol/L (3.5-5.1) 02/20/22 04:16 Chloride 107 mmol/L (98-107) 02/20/22 04:16 Carbon Dioxide 21 mmol/L (22-29) L 02/20/22 04:16 Anion Gap 12.9 (5-19) 02/20/22 04:16 BUN 11 mg/dL (6-20) 02/20/22 04:16 Creatinine 0.6 mg/dL (0.5-0.9) 02/20/22 04:16 GFR Calculation 103.0 mL/min (90-130) 02/20/22 04:16 Glucose 107 mg/dL (65-115) 02/20/22 04:16 Calculated Osmolality 284 mOsm/kg (285-295) L 02/20/22 04:16 Calcium 8.5 mg/dL (8.5-10.5) 02/20/22 04:16 Total Bilirubin 0.2 mg/dL (0.15-1.2) 02/20/22 04:16 Direct Bilirubin 0.20 mg/dL (0.00-0.30) 02/20/22 04:16 AST 28 U/L (0-32) 02/20/22 04:16 ALT 16 U/L (0-33) 02/20/22 04:16 Alkaline Phosphatase 72 U/L (35-105) 02/20/22 04:16 Lactate Dehydrogenase 776 U/L (135-214) H 02/18/22 06:52 Troponin T Baseline 470 ng/L (0-10) H* 02/17/22 08:57 Troponin T 120 Minute 495.6 ng/L (0-10) H 02/17/22 10:41 Delta Troponin T 25.6 ABS# (0-10) H* 02/17/22 10:41 Troponin T Hi Sens 6Hr 693.3 ng/L (0-10) H 02/17/22 15:03 Troponin T Hi Sens 6Hr Delta 223.3 ng/L (0-12) H* 02/17/22 15:03 NT-Pro-B Natriuret Pep 1921 pg/mL (0-125) H 02/17/22 08:57 Total Protein 6.0 g/dL (6.6-8.7) L 02/20/22 04:16 Albumin 2.8 g/dL (3.5-5.2) L 02/20/22 04:16 Globulin 3.2 g/dL (1.3-4.6) 02/20/22 04:16 Blood Type B Positive 02/20/22 09:50 Rho(D) Type Positive 02/20/22 09:50 Antibody Screen Negative 02/20/22 09:50 Crossmatch See Detail 02/20/22 09:50 Vitals Last Vital Signs Temp 98.2 F 02/21/22 05:00 Pulse 97 02/21/22 07:00 Resp 17 02/21/22 07:00 BP 99/77 02/21/22 07:00 Pulse Ox 95 02/21/22 07:00 O2 Del Method 02/21/22 02:30 O2 Flow Rate 3 02/17/22 16:30 FiO2 21 02/20/22 23:00 Discharge Plan Discharge Patient Disposition: Home Condition: Stable Prescriptions: New ferrous sulfate 325 mg (65 mg iron) tablet 325 mg PO BID Qty: 60 0RF atorvastatin 40 mg Tablet 40 mg PO BEDTIME Qty: 90 3RF clopidogrel 75 mg Tablet 75 mg PO DAILY Qty: 90 3RF aspirin 81 mg Tablet,Delayed Release (Dr/Ec) 81 mg PO DAILY Qty: 90 2RF pantoprazole 40 mg Tablet,Delayed Release (Dr/Ec) 40 mg PO DAILY Qty: 30 0RF metoprolol tartrate 25 mg Tablet 12.5 mg PO BID@0900,2100 Qty: 120 2RF Continued albuterol sulfate 0.63 mg/3 mL Solution For Nebulization 0.83 mg INHALATION QID PRN (Reason: breathing difficulty) montelukast 10 mg Tablet 10 mg PO DAILY topiramate 100 mg Tablet 100 mg PO DAILY Discontinued hydrochlorothiazide 25 mg Tablet 25 mg PO DAILY metoprolol succinate 100 mg Tablet Extended Release 24 Hr 100 mg PO DAILY Discharge Orders: Discharge Order (Routine); Ordered 02/21/22 Ordered By: Kwesi Ayers Referrals: Kwesi Ayers M.D [Physician] - 1 month Beto Peterson MD [Primary Care Provider] - Cortney Keith FNP [Nurse Practitioner] - 7-10 days Discharge Diet: Cardiac Discharge Activity: Increase activity as tolerated Patient Instructions: Coronary Angioplasty (DC), Opioid Safety Activity Restrictions/Additional Instructions: Please do not lift more than 5 pounds of weight for the next 5 days Discharge Attestations Time Spent in Discharge Care*: greater than 30 min Quality Metrics Clinical Quality Measures [ Acute Myocardial Infaction { Clinical Trial Participant: No; Contraindication to aspirin: None; Aspirin prescribed; Contraindication to statin: None; Statin prescribed; Contraindication to PCI: None; PCI performed;}] Coding Level of Care Code Acute Chg FW DC note Diagnoses NSTEMI (non-ST elevated myocardial infarction) I21.4 Hypertension I10 Tobacco abuse Z72.0 Complete heart block I44.2
[2022-02-21] MEDS: pantoprazole DR 40 mg Tablet PO (08:02)
[2022-02-21] MEDS: aspirin 81 mg EC Tablet PO (08:03)
[2022-02-21] MEDS: clopidogrel 75 mg Tablet PO (08:03)
[2022-02-21] MEDS: metoprolol tartrate 25 mg Tablet 12.5 MG PO (08:03)
--- NOTE | 2022-02-21 09:06 | P.PN_ITS ---
Subjective Subjective: Patient reports doing well overnight. No concerns of bleeding. Not dizzy when she gets up and around. No chest discomfort with exertion. Medications: Reviewed: Yes Vitals/I&O/Wt Last Vital Signs Temp 98.2 F 02/21/22 05:00 Pulse 98 02/21/22 07:30 Resp 18 02/21/22 07:30 BP 99/77 02/21/22 07:30 Pulse Ox 95 02/21/22 07:00 O2 Del Method 02/21/22 02:30 O2 Flow Rate 3 02/17/22 16:30 FiO2 21 02/20/22 23:00 02/20/22 02/21/22 02/21/22 22:59 06:59 14:59 Intake Total 480 / 720 Balance 480 / 720 Physical Exam Narrative: General exam is no apparent distress Neck is supple no lymphadenopathy thyromegaly Cardiovascular regular rate and rhythm without murmur. Lungs clear no wheezing or crackles Abdomen is soft nontender with positive bowel sounds Extremities no cyanosis clubbing or edema, cap refill brisk Skin no rash Urinary Catheter Management: Pedro: Cath Placed During This Visit: yes, but has since been removed by the nurse Reason for Continuing Indwelling Catheter: Decision to DC Catheter Urinary Catheter Date of Insertion: 02/17/22 Urinary Catheter Time of Insertion: 11:35 Date Urinary Catheter Removed: 02/19/22 Time Urinary Catheter Discontinued: 09:00 Data : 02/21/22 03:40 02/20/22 04:16 A&P Assessment and plan (1) Anemia: Patient has significant anemia, which appears to be acute blood loss anemia. I have ordered testing and she has no evidence of hemolysis. Secondary to the profound amount of anemia since admission, retroperitoneal hematoma should be ruled out. CT scan was performed and this was ruled out Currently she has not significantly symptomatic with her anemia. Hemoglobin has been stable over the last 24 hours. She has no evidence of ongoing blood loss. She appears stable at this time. Note that she is on Plavix and aspirin. Protonix for the next month. Iron twice daily for the next month. Repeat hemoglobin within a week. (2) Ischemic cardiomyopathy: Patient with ischemic cardiomyopathy after myocardial infarction with EF now 45 to 50% (3) Coronary artery disease: Status post myocardial infarction, stenting of RCA Currently on Plavix, aspirin, beta-nathaly (4) Tobacco abuse: Counseled on abstinence Plan Other medical problems as outlined in past medical history Okay for discharge from a medicine standpoint. Thank you for this consultation Attestations Medical Necessity Statement*: As per primary Coding Level of Care Code Acute Certified Income Tax Preparer for Jono Fwsergey Diagnoses Anemia D64.9 Ischemic cardiomyopathy I25.5 Coronary artery disease I25.10 Tobacco abuse Z72.0
== END 2022-02-21 09:14 | disposition home or self-care (01) | DRG 215 ==
LOC: ER 09:06 → CCL 09:08 → ICU 09:34
PROVIDERS: Internal Medicine; Physician Assistant; Admitting Provider Internal Medicine; Emergency Provider Family Medicine; PCP Family Medicine; Visit Provider Internal Medicine
PROC: 02HA3RZ Insertion of Short-term External Heart Assist System into Heart, Percutaneous Approach (ICD-10-PCS; principal; 2022-02-17 09:15)
PROC: 02HA3RZ Insertion of Short-term External Heart Assist System into Heart, Percutaneous Approach (ICD-10-PCS; 2022-02-17 09:15)
PROC: 02PA3RZ Removal of Short-term External Heart Assist System from Heart, Percutaneous Approach (ICD-10-PCS; principal; 2022-02-18 10:45)
DX: I21.4 Non-ST elevation (NSTEMI) myocardial infarction (principal); I25.42 Coronary artery dissection; D62 Acute posthemorrhagic anemia; I44.2 Atrioventricular block, complete; F17.210 Nicotine dependence, cigarettes, uncomplicated; I10 Essential (primary) hypertension; I25.5 Ischemic cardiomyopathy; I95.9 Hypotension, unspecified; I24.0 Acute coronary thrombosis not resulting in myocardial infarction
CPT/HCPCS: 33990; 36415; 51702; 71045; 74177; 80048; 80053; 80076; 83010; 83615; 83880; 84484; 85014; 85018; 85025; 85347; 85730; 86850; 86900; 86920; 92920; 92973; 93005; 93306; 93454; 94660; 96360; 99152; 99153; 99285; C1725; C1760; C1769; C1779; C1874; C1887; C1894; C9600; J0461; J1644; J2250; J2270; J2704; J3010; J3480; J3490; J7030; Q9967

== ENCOUNTER → 2022-02-28 10:19 | Outpatient (BNVA) | payer OTHER, SELFPAY | PROVIDERS: PCP Family Medicine; Visit Provider Nurse Practitioner Family | DX: I25.10 Atherosclerotic heart disease of native coronary artery without angina pectoris (principal) | CPT/HCPCS: 36415; 80048; 85025 ==

== ENCOUNTER → 2022-04-01 14:54 | Outpatient (BNVA) | payer OTHER, SELFPAY | PROVIDERS: PCP Family Medicine; Visit Provider Internal Medicine | DX: D64.9 Anemia, unspecified (principal); I10 Essential (primary) hypertension | CPT/HCPCS: 36415; 85025 ==

== ENCOUNTER → 2023-01-16 09:08 | Outpatient (BNVA) | payer OTHER, SELFPAY | PROVIDERS: PCP Family Medicine; Referring Provider Nurse Practitioner Family; Visit Provider Physician Assistant | DX: S52.121A Displaced fracture of head of right radius, initial encounter for closed fracture; W19.XXXA Unspecified fall, initial encounter | CPT/HCPCS: 73080 ==

== ENCOUNTER → 2023-02-13 11:21 | Outpatient (BNVA) | payer OTHER, SELFPAY | PROVIDERS: PCP Family Medicine; Visit Provider Physician Assistant | DX: S52.121A Displaced fracture of head of right radius, initial encounter for closed fracture (principal); W19.XXXA Unspecified fall, initial encounter | CPT/HCPCS: 73080 ==

== ENCOUNTER → 2023-03-20 11:35 | Outpatient (BNVA) | payer OTHER, SELFPAY | PROVIDERS: PCP Family Medicine; Visit Provider Internal Medicine Cardiovascular Disease | DX: I25.10 Atherosclerotic heart disease of native coronary artery without angina pectoris (principal); I10 Essential (primary) hypertension | CPT/HCPCS: 36415; 80053; 80061; 83721; 85025 ==

== ENCOUNTER 2023-08-28 13:47 | Outpatient (CLI) | payer OTHER, SELFPAY ==
--- NOTE | 2023-08-28 13:56 | XR_ITS ---
WS: [id number] SCREENING DEXA SCAN [place] [employer] (PIROX) CLINICAL INFORMATION: POSTMENOPAUSAL COMPARISON: None. FINDINGS: The L1-L4 bone mineral density measures 1.342 g/cm2. This corresponds to a T score score of 1.4 and Z score of 2.3. Left femoral neck bone mineral density measures 1.047 g/cm2. This corresponds to a T score of 0.3 and Z score of 1.1. Right femoral neck bone mineral density measures 1.025 g/cm2. This corresponds to a T score 0.1of and Z score of 0.9. Mean femoral neck bone mineral density measures 1.036 g/cm2. This corresponds to a T score of 0.2 and Z score of 1.0. IMPRESSION: Normal bone mineralization lumbar spine and femoral necks. Patient's FRAX calculated 10 year probability for major osteoporotic fracture is 11.2% and osteoporot ic hip fracture is 0.8%.
== END 2023-08-28 13:48 | disposition home or self-care (01) ==
LOC: RAD 13:47
PROVIDERS: PCP Family Medicine; Referring Provider Family Medicine; Visit Provider Family Medicine
DX: Z13.820 Encounter for screening for osteoporosis (principal); Z78.0 Asymptomatic menopausal state
CPT/HCPCS: 77080

== ENCOUNTER 2024-01-22 11:11 | Outpatient (CLI) | payer OTHER, SELFPAY ==
--- NOTE | 2024-01-22 11:14 | MM_ITS ---
WS: [id number] Bilateral screening 3D tomosynthesis digital mammogram, 01/22/2024 11:14 AM Clinical Data: SCREENING Comparison: 01/17/2021. Findings: No spiculated masses or clustered calcifications are seen. There are no secondary signs of carcinoma . The breast parenchymal pattern shows heterogeneous density. There are scattered benign calcificatio ns in the left breast. MM/MM scr BI tomosynthesis [id number] Impression: Negative bilateral mammogram unchanged. Recommend annual screening mammograms. BIRADS: 1 - Negative FOLLOW UP: 1 Year Follow-up DENSITY: The breasts are heterogeneously dense, which may obscure small masses. The CAD roller checker was used
== END 2024-01-22 11:12 | disposition home or self-care (01) ==
LOC: RAD 11:11
PROVIDERS: PCP Family Medicine; Visit Provider Family Medicine
DX: Z12.31 Encounter for screening mammogram for malignant neoplasm of breast (principal); R92.333 Mammographic heterogeneous density, bilateral breasts; R92.1 Mammographic calcification found on diagnostic imaging of breast
CPT/HCPCS: 77063; 77067

== ENCOUNTER 2025-01-30 17:03 | Observation (INO) | payer OTHER, SELFPAY ==
[2025-01-30 17:05] VITALS: BP 126/83; PULSE 89; RESP 16; TEMP 36.6; O2SAT 98
--- OUTSIDE RECORDS SUMMARY | 2025-01-30 17:11 | XMS_ITS | Data Portability ---
Author Organization [facility] [place] [facility], [facility] Address [address] [address] Care Team Providers Care Behavioral Instructor Name Role Phone BRIONNA PETERSON Primary Care Provider Unavailabl e Assessment Encounter Date Assessment Date Assessment LastModified by Organization Details LastModified Time 01/13/2025 01/13/2025 She has been on and h2 nathaly or ppi for many years. We discussed the risks of an egd including the risks of bleeding, perforation, and sedation. She has no further questions and wishes to proceed. Still losing weight despite having a good appetite. Not available 01/13/2025 13:48:59 Plan of Treatment Reminders Order Date Submit Date Provider Last Modified By Organization Details Last Modified Time Details Appointments RECHECK 15 2024 09:00A Malaika Peterson MD Not available Not available Not available RECHECK 10 2024 12:50P Malaika Oconnell MD Not available Not available Not available Lab urinalysi s, dipstick 2024 025 [email or web address] [facility] ([facility]), [address] [place], [address], 08/27/2024 13:28:08 culture, urine 2024 025 [facility], [address] [place] [address], [facility] [address] [place], [address], 08/28/2024 22:17:53 Referral None recorded. Procedures colonosco py procedure (PROC) 2024 025 asurface [facility], [address], [place], [address], 01/16/2025 08:54:40 Surgeries None recorded. Imaging None recorded. Medication Orders sucralfat e 100 mg/mL oral suspensio n 2024 [facility], [address], [place], [address], 01/22/2025 05:00:55 triamcino lone acetonide 0.1 % topical cream 2024 025 [facility] 15, [address], [place], [address], 12/31/2024 17:06:36 cefdinir 300 mg capsule 2024 025 [facility] 15, [address], [place], [address], 09/10/2024 05:01:23 prednison e 20 mg tablet 2024 025 [facility] 15, [address], [place], [address], 12/31/2024 16:52:51 benzonata te 200 mg capsule 2024 025 [facility] 15, [address], [place], [address], 12/31/2024 16:52:40 Patient TargetsNo targets recorded. Patient Instructions Encounter Date Encounter Id Patient Instructions Last Modified By Organization Details Last Modified Time 01/13/2025 [id number] colonoscopy prep - miralax Not available 01/13/2025 13:48:32 colonoscopy education Not available 01/13/2025 13:48:32 colonoscopy education Not available 01/13/2025 13:48:32 Reason for Referral None Reported. Results Created Date Observation Date Name Description Value Unit Range Abnormal Flag Note LastModifiedBy Organization Detail LastModifiedTime 08/29/1908/28/2024 CULTU RE, URINE , ROUTI NE culture, urine, routine SEE NOTE CULTU RE, URINE , ROUTI NE Micro Numbe r: [id number] Test Statu s: Final Speci men Sourc e: Urine Speci men Quali ty: Adequ ate Resul t: No Growt h Comme nt: No colle ction date was provi ded. The speci men is gener ally defin ed as stabl e up to 48 hours . The resul t(s) need( s) to be inter prete d cauti ously . Clini copat holog ic corre latio n is requi red. Repea t testi ng is recom elle d as clini duane indic ated. [facility] [employer] [employer]i ce is avail able with quest ions or comme nts based on your area of inter est: [phone] [phone] T ([phone]) NO COLLE CTION DATE RECEI SANDY. WE HAVE USED THE DATE THE SPECI MEN WAS RECEI SANDY BY THIS LABOR ATORY THE COLLE CTION DATE. IF THIS IS INCOR RECT, PLEAS E CONTA CT CLIEN T SERVI UNIQUE. PHONE NUMBE R: [phone] Not Available [facility] [address] [place], [address], 08/28/2024 22:17:52 07/16/1907/15/2024 CBC WBC 7.2 x10 4.0-10 .5 Not Available [facility] [address], [place], [address], 07/15/2024 11:10:15 07/16/19 25 07/15/2024 CBC RBC 4.85 x10 3.50-5 .50 Not Available [facility] [address] [facility] [address], [place], [address], 07/15/2024 11:10:15 07/16/19 25 07/15/2024 CBC HGB 15.6 g/dL 12.0-1 6.0 Not Available [facility] [address] [facility] 1, [place], [address], 07/15/2024 11:10:15 07/16/19 25 07/15/2024 CBC HCT 43.2 % 37.0-4 7.0 Not Available [facility] [address] [facility] 1, [place], [address], 07/15/2024 11:10:15 07/16/1907/15/2024 CBC MCV 89.0 fL 80.0-9 9.9 Not Available [facility] [address] [facility] 1, [place], [address], 07/15/2024 11:10:15 07/16/19 25 07/15/2024 CBC MCH 32.2 pg 27.0-3 2.0 high Not Available [facility] [address] [facility] 1, [place], [address], 07/15/2024 11:10:15 07/16/19 25 07/15/2024 CBC MCHC 36.2 g/dL 32.0-3 6.0 high Not Available [facility] [address] [facility], [place], [address], 07/15/2024 11:10:15 07/16/1907/15/2024 CBC RDW 13.3 % 11.5-1 4.5 Not Available [facility] [address] [facility], [place], [address], 07/15/2024 11:10:15 07/16/1907/15/2024 CBC plt 177.5 x10 140.0- 451.0 Not Available [facility] [address] [facility] 1, [place], [address], 07/15/2024 11:10:15 07/16/19 25 07/15/2024 CBC lymphocytes % 16.8 % 20.0-5 0.0 low Not Available [facility] [address] [facility], [place], [address], 07/15/2024 11:10:15 07/16/19 25 07/15/2024 CBC granulcytes % 72.0 % 30.0-7 0.0 high Not Available [facility] [address] [facility] 1, [place], [address], 07/15/2024 11:10:15 07/16/19 25 07/15/2024 CBC monocytes % 7.6 % 2.0-16 .0 Not Available [facility] [address] [facility] 1, [place], [address], 07/15/2024 11:10:15 07/16/19 25 07/15/2024 CBC granulcytes# 5.2 x10 Not Azra ilable [facility] [address] [facility], [place], [address], 07/15/2024 11:10:15 07/16/19 25 07/15/2024 CBC lymphocytes # 1.2 x10 Not Available [facility] [address] [address], [place], [address], 07/15/2024 11:10:15 07/16/19 25 07/15/2024 CBC monocytes # 0.6 x10 Not Avai lable [facility] [address] [address], [place], [address], 07/15/2024 11:10:15 07/16/19 25 07/16/2024 COMPR EHENS HOLLIS METAB OLIC PANEL glucose 101 mg/dL 65-99 high Fasti ng refer ence inter david For someo ne witho ut known diabe lalo, a gluco se value betwe en 100 and 125 mg/dL is consi stent with predi abete s and shoul d be confi rmed with a follo w-up test. Not Available [address] [address] [place], [address], 07/16/2024 07:43:52 07/16/1907/16/2024 COMPR EHENS HOLLIS METAB OLIC PANEL urea nitrogen (BUN) 18 mg/dL 7-25 normal Not Available [facility] [address] [address] [place], [address], 07/16/2024 07:43:52 07/16/1907/16/2024 COMPR EHENS HOLLIS METAB OLIC PANEL creatinine 1.02 mg/dL 0.50-1 .05 normal Not Available [address] [address] [place], [address], 07/16/2024 07:43:52 07/16/19 25 07/16/2024 COMPR EHENS HOLLIS METAB OLIC PANEL eGFR 63 mL/mi n/1.7 3m2 > or = 60 normal Not Available [address], [address], 07/16/2024 07:43:52 07/16/1907/16/2024 COMPR EHENS HOLLIS METAB OLIC PANEL BUN/creatini ne ratio SEE NOTE: (calc ) 6-22 Not Repor tucker: BUN and Creat inine are withi n refer ence range . Not Available [facility] [address] [address] [place], [address], 07/16/2024 07:43:52 07/16/1907/16/2024 COMPR EHENS HOLLIS METAB OLIC PANEL sodium 138 mmol/ L 135-14 6 normal Not Available [facility] [address] [address] [place], [address], 07/16/2024 07:43:52 07/16/1907/16/2024 COMPR EHENS HOLLIS METAB OLIC PANEL potassium 4.6 mmol/ L 3.5-5. 3 normal Not Available [address], [address], 07/16/2024 07:43:52 07/16/1907/16/2024 COMPR EHENS HOLLIS METAB OLIC PANEL chloride 107 mmol/ L 98-110 normal Not Available [address], [address], 07/16/2024 07:43:52 07/16/19 25 07/16/2024 COMPR EHENS HOLLIS METAB OLIC PANEL carbon dioxide 26 mmol/ L 20-32 normal Not Available [address], [address], 07/16/2024 07:43:52 07/16/1907/16/2024 COMPR EHENS HOLLIS METAB OLIC PANEL calcium 9.3 mg/dL 8.6-10 .4 normal Not Available [address], [address], 07/16/2024 07:43:52 07/16/1907/16/2024 COMPR EHENS HOLLIS METAB OLIC PANEL protein, total 7.3 g/dL 6.1-8. 1 normal Not Available [address], [address], 07/16/2024 07:43:52 07/16/1907/16/2024 COMPR EHENS HOLLIS METAB OLIC PANEL albumin 4.2 g/dL 3.6-5. 1 normal Not Available [address], [address], 07/16/2024 07:43:52 07/16/19 25 07/16/2024 COMPR EHENS HOLLIS METAB OLIC PANEL globulin 3.1 g/dL_ (calc ) 1.9-3. 7 normal Not Available [address] [place], [address], 07/16/2024 07:43:52 07/16/19 25 07/16/2024 COMPR EHENS HOLLIS METAB OLIC PANEL albumin/glob ulin ratio 1.4 (calc ) 1.0-2. 5 normal Not Available [address], [address], 07/16/2024 07:43:52 07/16/19 25 07/16/2024 COMPR EHENS HOLLIS METAB OLIC PANEL bilirubin, total 0.4 mg/dL 0.2-1. 2 normal Not Available [address], [address], 07/16/2024 07:43:52 07/16/19 25 07/16/2024 COMPR EHENS HOLLIS METAB OLIC PANEL alkaline phosphatase 81 U/L 37-153 normal Not Available [address], [address], 07/16/2024 07:43:52 07/16/19 25 07/16/2024 COMPR EHENS HOLLIS METAB OLIC PANEL AST 31 U/L 10-35 normal Not Available [address], [address], 07/16/2024 07:43:52 07/16/19 25 07/16/2024 COMPR EHENS HOLLIS METAB OLIC PANEL ALT 28 U/L 6-29 normal Not Available [address], [address], 07/16/2024 07:43:52 07/16/19 25 07/16/2024 TSH TSH 2.89 mIU/L 0.40-4 .50 normal Not Available [address], [address], 07/16/2024 07:43:53 07/16/19 25 07/15/2024 ESR (eryt hrocy te sedim entat ion rate) , blood SedRate 18 Not Available [facility] [address] [place], [address], 07/15/2024 10:40:00 08/28/19 25 08/27/2024 urina lysis , dipst ick Leukocytes Negati ve Not Available [facility] ([facility]) [address] [place], [address], 08/27/2024 12:33:30 08/28/19 25 08/27/2024 urina lysis , dipst ick Nitrite negati ve Not Available [facility] ([facility]) [address] [place], [address], 08/27/2024 12:33:30 08/28/19 25 08/27/2024 urina lysis , dipst ick Color Pale Yellow Not Available [facility] ([facility]) [address] [place], [address], 08/27/2024 12:33:30 08/28/19 25 08/27/2024 urina lysis , dipst ick Appearance Clear Not Available [facility] ([facility]) [address] [place], [address], 08/27/2024 12:33:30 08/28/19 25 08/27/2024 urina lysis , dipst ick Glucose Negati ve Not Available [facility] ([facility]) [address] [place], [address], 08/27/2024 12:33:30 08/28/19 25 08/27/2024 urina lysis , dipst ick Bilirubin Negati ve Not Available [facility] ([facility]) [address] [place], [address], 08/27/2024 12:33:30 08/28/19 25 08/27/2024 urina lysis , dipst ick Ketone Negati ve Not Available [facility] ([facility]) [address] [place], [address], 08/27/2024 12:33:30 08/28/19 25 08/27/2024 urina lysis , dipst ick Urobilinogen .2 Not Available [facility] ([facility]) [address] [place], [address], 08/27/2024 12:33:30 08/28/19 25 08/27/2024 urina lysis , dipst ick Protein Negati ve Not Available [facility] ([facility]) [address] [place], [address], 08/27/2024 12:33:30 08/28/19 25 08/27/2024 urina lysis , dipst ick pH 6.0 Not Available [facility] ([facility]) [address] [place], [address], 08/27/2024 12:33:30 08/28/19 25 08/27/2024 urina lysis , dipst ick Blood Negati ve Not Available [facility] ([facility]) [address] [place], [address], 08/27/2024 12:33:30 08/28/19 25 08/27/2024 urina lysis , dipst ick Specific [place] 1.015 Not Available [facility] ( [facility]) [address] [place], [address], 08/27/2024 12:33:30 11/19/19 25 11/18/2024 COLOG UARD cologuard result reportable POSITI VE negati ve abnormal The Colog uard (TM) test was perfo rmed on this speci men. POSIT HOLLIS TEST RESUL T. A posit hollis Colog uard resul t shoul d be follo wed with a colon oscop y or visua l exami natio n of the colon . The stephani l value (refe rence range ) for this assay is negat hollis. TEST DESCR IPTIO N: [place] site algor ithmi c shady sis of stool DNA-b giles jade with hemog lobin immun oassa y. Quant itati ve value s of indiv idual bioma rkers are not repor table and are not assoc iated with indiv idual bioma rker resul t refer ence range s. Colog uard is inten ded for color ectal cance r scree samson of adult s of eithe r sex, 45 years or older , who are at [facility] for color ectal cance r (CRC) . Colog uard has been appro sandy for use by the [place]. FDA. The perfo rmanc e of Colog uard was estab lishe d in a cross secti onal study of [facility] adult s aged 50-84 . Colog uard perfo rmanc e in patie nts ages 45 to 49 years was estim ated by sub-g roup shady sis of near- age group s. Colon oscop ies perfo rmed for a posit hollis resul t may find as the most clini duane signi ficbianca t lesio n: color ectal cance r [4.0% ], advan placido adeno ma (incl uding sessi le jennie tucker polyp s great er than or equal to 1cm diame ter) [20%] or non- advan placido adeno ma [31%] ; or no color ectal neopl marcello [45%] . These estim ates are deriv ed from a prosp ectiv e cross -sect ional scree samson study of 10,00 0 indiv idual s at [facility] risk for color ectal cance r who were scree tyler with both Colog uard and colon oscop y. (William Rebollar al, N Engl J Med 2014; 370(1 4):12 86-12 97.) Colog uard may produ ce a false negat hollis or false posit hollis resul t (no color ectal cance r or preca ncero us polyp prese nt at colon oscop y follo w up). A negat hollis Colog uard test resul t does not guara ntee the absen ce of CRC or advan placido adeno ma (pre- cance r). The curre nt Colog uard scree samson inter david is every 3 years . (Amer ican Cance r Socie ty and U.S. Multi -Soci ety Task Force ). Colog uard perfo rmanc e data in a ,00 0 patie nt pivot al study using colon oscop y as the refer ence metho d can be acces sed at the follo wing locat ion: www.e xactl abs.c om/re chyna . Addit ional descr iptio n of the Colog uard test proce ss, warni ngs and preca ution s can be found at www.c ologu arsenio.c om. Not Available [facility] (Cologuard Orders Only) [address], [place], [address], 11/25/2024 01:20:33 01/28/20 25 01/27/2025 colon oscop y proce dure (PROC ) No observ ation record ed. [email or web address] [facility] [place] [address] , [place], [address], 01/27/2025 15:26:40 01/28/20 25 01/27/2025 upper endos copy proce dure (EGD) (PROC ) No observ ation record ed. [email or web address] [facility] [place] [address] , [place], [address], 01/27/2025 15:26:26 Result Notes None recorded. Problems Name Problem SNOMED Code Status Onset Date Resolution Date Notes Provider Name and Address Organization Details Recorded Time Hyperchole sterolemia 06840914 Active 2021 Hyperchole sterolemia BARI Jean [facility] 5 11:48:11 Benign essential hypertensi on 4760429 Active 2021 Hypertensi on FLO FUENTES taya [facility] 5 11:48:11 Coronary arterioscl erosis 43066820 Active 2022 [facility] 11:48:11 Essential hypertensi on 44208818 Active [address] [facility] 5 11:48:12 Gastroesop hageal reflux disease 524389622 Active 2022 Nikhil Oconnell MD [address] [place] [address], [address], [facility] 5 13:47:31 Intermitte nt palpitatio ns 804217978 Active [address] [facility] 5 11:48:11 Chronic obstructiv e pulmonary disease 08334287 Active 2024 FLO FUENTES [facility] 5 11:48:11 Unintentio nal weight loss 123281050 Active 2024 Nikhil Oconnell MD [address] [place] [address], [address], [facility] 5 13:46:35 Problem Notes None recorded. Procedures Surgical History Date Name Laterality Status Provider Name and Address Organization Details Recorded Time 2024 colonoscopy [address]BINO FINNEY [facility] 5 14:04:48 2024 esophagogastroduodenoscopy completed PATTI FINNEY [facility] 5 14:06:06 Imaging Results None recorded. Procedure Notes None recorded. Medical Equipment None Reported. Allergies Allergen ID Allergen Name Allergen Category Reaction Reaction Severity Criticality Documentation Date Start Date Code Code System Note Provider Name and Address Organization Details Recorded Time 3845 Substance with sulfonami de structure and antibacte rial mechanism of action (substanc e) medicatio n rash mild low 10/03/2022 19183 8003 SNOMED Lyndsaybhavik Liang [facility]CDavid 4 09:44:18 65034 doxycycli ne Not available headache moderate low 02/16/2023 3640 RxNorm Lyndsay Liang [facility]CD[facility] 4 09:44:19 Medications Name Sig Start Date Stop Date Status Note LastModified by Organization Details LastModified Time losartan 50 mg tablet TAKE 1 TABLET BY MOUTH TWICE DAILY active Not Available Not Available No t Available atorvasta tin 40 mg tablet 10/15 completed Not Available Not Available Not Available Augmentin 875 mg-125 mg tablet Take 1 tablet every 12 hours by oral route for 7 days. 07/15 completed Not Available Not Available Not Available atorvasta tin 80 mg tablet 07/15 completed Not Available Not Available Not Available prednison e 10 mg tablet TAKE 1 TABLET BY MOUTH ONCE DAILY 03/22 completed Not Available Not Available Not Available doxycycli ne hyclate 100 mg capsule Take 1 capsule twice a day by oral route for 10 days. 04/03 completed Not Available Not Available Not Available nicotine 14 mg/24 hr daily transderm al patch APPLY 1 PATCH ON SKIN DAILY, START WITH 14MG FOR 2 MONTHS, THEN DECREASE TO 7MG 10/03 completed Not Available Not Available Not Available albuterol sulfate 2.5 mg/3 mL (0.083 %) solution for nebulizat ion USE 1 VIAL IN NEBULIZE R 4 TIMES DAILY NEEDED FOR SHORTNES S OF BREATH, COUGH OR WHEEZING active Not Available Not Available No t Available azithromy rex 250 mg tablet TAKE 2 TABLETS (500 MG) BY ORAL ROUTE ONCE DAILY FOR 1 DAY THEN 1 TABLET (250 MG) BY ORAL ROUTE ONCE DAILY FOR 4 DAYS 07/20 completed Not Available Not Available Not Available benzonata te 200 mg capsule TAKE 1 CAPSULE BY MOUTH THREE TIMES DAILY NEEDED FOR COUGH 12/31 completed Not Available Not Available Not Available sucralfat e 100 mg/mL oral suspensio n Take 10 mL 4 times a day by oral route for 7 days. 01/22 completed Not Available Not Available Not Available prednison e 20 mg tablet TAKE 2 TABLETS BY MOUTH ONCE DAILY IN THE MORNING FOR 5 DAYS 12/31 completed Not Available Not Available Not Available metoprolo l succinate ER 100 mg tablet,ex tended release 24 hr TAKE 1 TABLET BY MOUTH ONCE DAILY 10/03 completed Not Available Not Available Not Available clopidogr el 75 mg tablet 01/13 completed Not Available Not Available Not Available ciproflox acin 500 mg tablet TAKE 1 TABLET BY MOUTH EVERY 12 HOURS WITH MEALS FOR 5 DAYS 03/22 completed Not Available Not Available Not Available aspirin 81 mg tablet,de layed release daily active Not Available Not Available Not Available triamcino lone acetonide 0.1 % topical cream APPLY A THIN LAYER OF CREAM EXTERNAL LY TO AFFECTED AREA(S) TWICE A DAY FOR 7 DAYS active Not Available Not Available No t Available betametha sone acetate and sodium phos 6 mg/mL suspensio n for injection Take 6 mg every day by injectio n route for 1 day. 10/15 completed Not Available Not Available Not Available pantopraz ole 40 mg tablet,de layed release TAKE 1 TABLET BY MOUTH ONCE DAILY active Not Available Not Available No t Available losartan 25 mg tablet Take 1 tablet every day by oral route. 07/20 completed Not Available Not Available Not Available metoprolo l tartrate 50 mg tablet TAKE 1 TABLET BY MOUTH TWICE DAILY active Not Available Not Available No t Available monteluka st 10 mg tablet TAKE 1 TABLET BY MOUTH ONCE DAILY active Not Available Not Available No t Available hydrochlo rothiazid e 25 mg tablet TAKE 1 TABLET BY MOUTH ONCE DAILY 10/03 completed Not Available Not Available Not Available albuterol sulfate HFA 90 mcg/actua tion aerosol inhaler INHALE 1 TO 2 PUFFS BY MOUTH EVERY 4 HOURS NEEDED active Not Available Not Available No t Available cefdinir 300 mg capsule Take 1 capsule every 12 hours by oral route for 7 days. 09/10 completed Not Available Not Available Not Available topiramat e 100 mg tablet TAKE 1 TABLET BY MOUTH AT BEDTIME active Not Available Not Available No t Available rosuvasta tin 40 mg tablet TAKE 1 TABLET BY MOUTH ONCE DAILY active Not Available Not Available No t Available metoprolo l tartrate 25 mg tablet active Not Available Not Available Not Available nitrofura ntoin monohydra te/macroc rystals 100 mg capsule TAKE 1 CAPSULE BY MOUTH EVERY 12 HOURS FOR 7 DAYS 04/15 completed Not Available Not Available Not Available Questran Light daily 04/03 completed generic please; Recorded 06/24/19 5:42PM by Derek Barrera on/Adden dum; Refill Quantity : 1; Canister ; Not Available Not Available Not Available ferrous sulfate active Not Available Not Available Not Available albuterol sulfate four times daily, as needed 10/15 completed Recorded 06/28/19 9:19AM by CONCHIS Alcaraz, Catrachitaati on/Adden dum; Refill Quantity : 30; Millilit er; Not Available Not Available Not Available Plavix 10/15 completed Not Available Not Available Not Available Nicotine Transderm al daily 04/03 completed RM/AV; Recorded 05/30/19 10:33AM by Jaimee muse, Office Visit; Refill Quantity : 0; Not Available Not Available Not Available diclofena c 1 % topical gel 02/05 completed Not Available Not Available Not Available losartan potassium (bulk) daily 04/03 completed Recorded 05/30/19 10:53AM by Brionna Peterson MD, Office Visit; Refill Quantity : 30; Tablet; Not Available Not Available Not Available Vitals Date Recorded Body height Body mass index (BMI) Body weight Oxygen saturation Oxygen saturation in Arterial blood by Pulse oximetry Heart rate Respiratory rate Body temperature Systolic And Diastolic Provider Name and Address Organization Details Last Updated DateTime 5 165.1 cm 23.8 kg/m2 73470.7 1 g 94 % 94 % 74 /min 18 /min 98.2 [degF] 146/74 mm[Hg] Alicia Bhandari [facility], .L.CDavid 5 17:36:56 Date Recorded Body height Body mass index (BMI) Body weight Oxygen saturation Oxygen saturation in Arterial blood by Pulse oximetry Heart rate Respiratory rate Body temperature Systolic And Diastolic Provider Name and Address Organization Details Last Updated DateTime 5 165.1 cm 24.2 kg/m2 34038.9 9 g 98 % 98 % 88 /min 17 /min 97.8 [degF] 132/84 mm[Hg] ANA ZULY [facility] 5 12:41:45 Date Recorded Body height Body mass index (BMI) Body weight Heart rate Oxygen saturation Oxygen saturation in Arterial blood by Pulse oximetry Body temperature Systolic And Diastolic Provider Name and Address Organization Details Last Updated DateTime 5 165.1 cm 23.1 kg/m2 85140.3 4 g 75 /min 98 % 98 % 98.4 [degF] 132/72 mm[Hg] Megan Osullivan [facility] 5 16:56:45 Date Recorded Body height Body mass index (BMI) Body weight Oxygen saturation Oxygen saturation in Arterial blood by Pulse oximetry Heart rate Body temperature Systolic And Diastolic Provider Name and Address Organization Details Last Updated DateTime 5 165.1 cm 23.3 kg/m2 21691.3 3 g 98 % 98 % 67 /min 97.7 [degF] 144/80 mm[Hg] Jaimie Delilah [facility] 5 18:36:11 Date Recorded Body height Body mass index (BMI) Body weight Respiratory rate Body temperature Oxygen saturation Oxygen saturation in Arterial blood by Pulse oximetry Heart rate Systolic And Diastolic Provider Name and Address Organization Details Last Updated DateTime 5 165.1 cm 23 kg/m2 92799.4 5 g 20 /min 97.9 [degF] 96 % 96 % 68 /min 118/64 mm[Hg] ALBINO FINNEY [facility] 5 13:15:23 Social History Question Answer Notes LastModified by Organizat ion Details LastModified Time Tobacco Smoking Status Current Every Day Smoker FLO [place] [facility] [place] 10/03/2022 10:39:40 What Was The Date Of Your Most Recent Tobacco Screening? 01/08/2025 [email or web address] Information not available 01/08/2025 Sex: Unknown Functional Status Question Answer Note LastModified by Organizat ion Details LastModified Time Do you use any illicit or recreational drugs? No [email or web address] Information not available 10/03/2022 Do you or have you ever used any other forms of tobacco or nicotine? No [email or web address] Information not available 01/13/2025 What is your level of alcohol consumption? Occasional [email or web address] Information not available 04/03/2023 Mental Status None recorded. Family History Nothing Reported Notes:Brother: Hypercholeste rolemia, Diabetes Mellitus, Hypertension Daughter: Heart disease in female family member before age 65, Asthma Father: Kidney disease Grandmother-Cancer; unknown type of cancer, Dibetes-Brother, Hypertension: Denied Mother: Heart disease in female family member before age 65, Completed Stroke Paternal Grandmother: Diabetes Mellitus Sister: Hypertension Medical History No medical history recorded. Gynecological HistoryNo gynecological history recorded. Obstetrics History GPAL:G 0 P 0 0 0 0 Immunizations Vaccine Type Date Status Note Provider Nam e and Address Organization Details Recorded Time TST-PPD intradermal 2 completed Not Available [facility] 11/29/2022 02:39:10 Influenza, split virus, trivalent, preservative 0 completed Not Available [facility] 11/29/2022 02:39:11 Past Encounters Encounter ID Performer Location Encounter Start Date Encounter Closed Date Diagnosis/Indication Diagnosis SNOMED-CT Code Diagnosis ICD10 Code Diagnosis IMO Codes Diagnosis Note [id number] Brionna Peterson MD [facility] ([facility]) [address] [place] [address] 10/03/2022 10:20:51 10/03/2022 11:25:19 Coronary arteriosclerosis 31731948 I25.10 Essential hypertension 33039428 I10 She is now on Losartan 50mg up from 25mg. Gastroesop hageal reflux disease 964671869 K21.9 [id number] CONCHIS SURESH [facility] ([facility]) [address] [place] [address] 10/18/2022 14:53:50 10/18/2022 15:52:01 Strain of muscle of right hip 0570481745 7109148 S76.011A Discussed using Voltaren gelOTC Tylenol or Ibuprofen for pain/disco mfortStret francesca dailyFollo w up with PCP in 1 week Return to clinic if any changes, any worsening, any concernPat ient verbalized understand ing of plan. [id number] TRISTAN ROCHA [facility] ([facility]) [address] [place] [address] 01/02/2023 11:05:53 01/02/2023 16:11:49 Pain of right elbow joint 7317338500 0405179 M25.521 Closed fra cture of head of right radius 8703412241 2491075 S52.124A Consulted with Dr. Alcocer. Fracture likely, will send x-ray for over read. Patient was placed in a sling today. Discussed immobilizi ng the elbow joint but continuing to use the shoulder joint with passive ROM exercises. Will start referral process to ortho for further evaluation . Patient should wear arm sling at all times during the day until cleared by ortho. Recommend ice TID and ibuprofen/ tylenol PRN. Will follow up with PCP pending ortho appointmen t. [id number] TRISTAN ROCHA [facility] ([facility]) [address] [place] [address] 02/08/2023 14:55:05 02/08/2023 16:51:02 Acute upper respiratory infection 17667631 J06.9 Patient declined COVID testing today. Will start doxycyclin e and prednisone today. Encouraged to continue inhalers and nebulizers at home. Recommend a follow up with PCP in 2 weeks if no improvemen t. If severe SOB occurs, should go to ED. Patient verbalizes understand ing. Tight chest 64878669 R07 .89 Normal EKG today. Reassured with chest tightness being reproducib le with left arm movement. If pain persists, should follow up in 1 week with PCP. Patient verbalizes understand ing. [id number] Brionna Peterson MD [facility] ([facility]) [address] [place] [address] 04/03/2023 15:05:32 04/03/2023 16:40:40 Benign essential hypertension 7245748 I10 Hypercholesterolemia 136 09934 E78.00 Gastroesop hageal reflux disease 209506536 K21.9 Coronary arteriosclerosis 31659435 I25.10 Essential hypertension 85601490 I10 She is now on Losartan 50mg up from 25mg. Intermitte nt palpitations 920299291 R00.2 [id number] Dallas Alcocer MD [facility] ([facility]) [address] [place] [address] 04/30/2023 15:59:23 05/04/2023 19:37:03 Acute bronchitis 35919311 J20.9 This is likely viral. However, we will start prednisone to help with symptoms especially given smoking history. Continue supportive care. Continue as needed albuterol. [id number] Jeremy Mckenzie MD [facility] ([facility]) [address] [place], [place] [address] 05/03/2023 14:37:19 05/03/2023 16:22:26 Acute bronchitis 72680578 J20.9 f/u as needed [id number] Brionna Peterson MD [facility] ([facility]) [address] [place] [address] 08/14/2023 09:30:30 08/14/2023 10:23:13 Bursitis of left shoulder 9896851655 80021 M75.52 left shoulder was prepped anteriorly with alcohol and arthrocent esis was performed with injection of 6mg betamethas one and 1ml lidocaine 1%. No complicati ons. Benign ess ential hypertension 6581306 I10 [id number] Brionna Peterson MD [facility] ([facility]) [address] [place] [address] 5 10/16/2023 14:34:35 10/16/2023 15:11:38 Benign essential hypertension 0251312 I10 Will check her BP at home daily for the next 2 weeks and call and let us know what it is running. Hypercholesterolemia 136 94629 E78.00 Intermitte nt palpitations 248195372 R00.2 Myalgia ca used by statin 0010495031 4877373 T46.6X5A [id number] Brionna Peterson MD [facility] ([facility]) [address] [place] [address] 01/08/2024 11:43:02 01/08/2024 12:39:18 Polymyalgia rheumatica 48712350 M35.3 strongly suspected. Active or passive immunization 624479827 Z23 Screening for cardiovascular system disease 140650590 Z13.6 Screening mammography 24 401619 Z12.31 [id number] DASHAWN BARNETT APRN [facility] ([facility]) [address] [place] [address] 02/06/2024 13:10:14 02/06/2024 13:45:58 Dysuria 77842045 R30.0 Acute urin francisco tract infection 745511261 N39.0 [id number] CONCHIS BARKLEY [facility] ([facility]) [address] [place] [address] 5 03/22/2024 16:37:28 03/22/2024 18:51:06 Dysuria 01028281 R30.0 Acute urin francisco tract infection 828490160 N39.0 UA results reviewed and discussed with pt. We will start antibiotic s. Pt will increase oral fluids. Return to office with no improvemen t or any problems. Go to ER with severe worsening or severe problems.W e will obtain urine culture [id number] LUIS ALFREDO RUSSELL [employer] [facility] ([facility]) [address] [place] [address] 5 04/15/2024 12:08:19 04/15/2024 12:53:11 Acute exacerbation of chronic obstructive pulmonary disease 382419870 J44.1 Refill of neb soln provided so pt may perform nebs at home.Discu ssed use of otc medication s for symptom management .Push oral fluids and rest.If you develop fever, sob, or start feeling worse then return for re-evaluat ion. [id number] Brionna Peterson MD [facility] ([facility]) [address] [place] [address] 07/15/2024 09:42:12 07/15/2024 13:07:46 Chronic obstructive pulmonary disease 18862554 J44.9 Acute bronchitis 7044896 2 J20.9 Benign ess ential hypertension 5375895 I10 Running high, worse in the morning. Acute exac erbation of chronic obstructive pulmonary disease 328911507 J44.1 Unintentio nal weight loss 565362548 R63.4 [id number] CONCHIS SURESH [facility] ([facility]) [address] [place] [address] 5 07/20/2024 17:17:25 07/22/2024 06:27:17 Acute viral bronchitis 224392789 J20.8 Increase po fluids. Rest. Return to clinic with any new or worsening symptoms. [id number] CONCHIS SURESH [facility] ([facility]) [address] [place] [address] 5 08/27/2024 12:29:16 08/28/2024 16:53:49 Dysuria 49380675 R30.0 [id number] Discussed to take antibiotic as prescribed if symptoms return until completedU rine culture ordered - will notify of any resultsEdu cated patient on increasing PO fluids of water, decreasing caffeine (coffee) and sugary drinks.Dis cussed importance of avoiding baths, scented soaps, douching, perfumes.M ay take OTC AZO for 1-2 days as box directs for burning sensation. Discussed if developmen t of abdominal pain, flank pain, fever, vomiting, worsening symptoms return to walk-in, PCP or ED for re-evaluat ion. Return to clinic if any changes, any worsening, any concernsPa tient verbalized understand ing of plan. [id number] CONCHIS SURESH [facility] ([facility]) [address] [place] [address] 5 12/31/2024 16:47:41 01/05/2025 10:42:00 Insect sting 184880251 T63.481A 64747969 Discussed to wash the area with soap and water daily.If you develop worsening rash, body aches, fever, or other concerns arise, return for re-evaluat ion. [id number] CONCHIS BARKLEY [facility] ([facility]) [address] [place] [phone] 5 01/08/2025 18:28:17 01/10/2025 13:56:51 Upper abdominal pain 59231070 R10.10 [id number] Will add sucralfate for her epigastric symptoms. Abd soft and non tender. VSS. If no relief after a couple days or worsening symptoms then f/u with PCP later this week. [id number] Nikhil Oconnell MD [facility] ([facility]) [address] [place] [address] 01/13/2025 12:28:43 01/13/2025 13:59:47 Colorectal cancer detected by DNA-based stool screening 172661995 R19.5 8791438336 Epigastric pain 25598843 R10.13 45389 Unintentio nal weight loss 537566192 R63.4 793047 Gastroesop hageal reflux disease 946921754 K21.9 36031789 Health Concerns Section Related Observation LastModified by Organization Detai ls LastModified Time None Recorded Concern Status LastModified by Organization Details LastModified Time None Recorded Advance Directives Directive None Recorded Payers Insurance Date Sequence Insurance Name Policy Number Policy Gomez Covered Member ID Gomez Member ID Guarantor Name 01/24/2025 1 [employer] ([employer]PO) Esther Nicole [id number] Esther Nicole Notes Date Note Type Note Provider Name and Address Organization Details Recorded Time 5 text/html CoughReported by PatientROS as noted in the HPI walk in patientpatient is here today for cough, shortness of breath. Patient was seen by Dr Peterson for this on 07/15/24 and was prescribed zpac and proair inhaler but it did not help. CONCHIS SURESH [address] [place], [address], BAR[facility], [place] 07/20/2024 19:53:59 5 text/html Lower Urinary Tract Symptoms (LUTS)Reported by PatientHPIFor associated symptoms, patient reportsabdominal pain,empties poorly,urgency, anddysuria. For quality, patient reportsdull. For severity, patient reportsimprovingandmild. For duration, patient reportsintermittentand< 1 week.ROS as noted in the HPI Patient c/o urinary symptoms. She states that Thursday she had lower abdominal pain and burning with urination. She took several Azo and was better the rest of the day and . Yesterday she had the burning and had blood in her urine. She took Azo and symptoms improved. Feels better today. She feels like she has to urinate often but isn't able to go very much. HASMUKH QUIÑONES [address], [address], [facility] 08/27/2024 13:27:58 5 text/html ROS as noted in the HPI walk in ptPT has a red spot on the middle of her neck that itches for 3 days. Patient states that she felt a sting at work and that the site continues to itch despite use of hydrocortisone cream. HASMUKH ISHMAEL [address], [address], [facility] 12/31/2024 17:06:56 5 text/html ROS as noted in the HPI walk inx1 day epi-gastric pain after Cook out . States she was eating seafood. Developed upper abd pain the next morning. [place] like she couldn't belch so started drinking soda. Finally was able to belch and had some relief. Her stomach still feels big . Denies nausea, vomiting, diarrhea, or fever. State she feels really tired today. LUIS ALFREDO RUSSELL [address], [address], [facility] 01/08/2025 18:48:52 5 text/html Colonoscopy ScreeningReported by PatientColonoscopy ScreeningFor gi symptoms, patient reportsabdominal painandconstipationbut reportsno diarrhea,no recent change in bowel movements,no change in the stool,no color change in stool, andno rectal bleeding. For associated symptoms, patient reportsdecreased appetite. For context, patient reportsprior examinationbut reportsno history of colon polyps. For family history, patient reportsno colon cancer. The patient presents today at the request of Dr. Peterson for evaluation and discussion of colonoscopy for positive cologuard test, and 10 yr screening.Patient also having epigastric pain The patient denies any recent persistent diarrhea, persistent constipation, bloody or dark tarry stools, or mucusy stools. Last Colon Cancer screenin07/2014 Problems with anesthesia in the past: NONE Family History of Colon cancers: NONE Blood Thinners: Aspirin Co-morbidities: Nikhil Oconnell MD [address] [place] [address], [phone], [facility], [place] 01/13/2025 13:49:12 OBGyn Episode No OBEpisode recorded.
--- NOTE | 2025-01-30 17:21 | ECG_ITS ---
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 Measurements Intervals Clifford Rate: 89 P: 69 PA: 142 QRS: 28 QRSD: 97 T: 80 QT: 353 QTc: 431 Interpretive Statements SINUS RHYTHM Compared to ECG 02/17/2022 11:19:54 Sinus bradycardia no longer present ST (T wave) deviation no longer present Myocardial infarct finding no longer present Electronically Signed On 02-02-2025 08:47:22 CDT by Kwesi Ayers M.D. [id number]
--- NOTE | 2025-01-30 17:26 | W.ED.ABDPA2 ---
HPI - Abdominal Pain General: Chief Complaint: Abdominal Pain Stated Complaint: Roylance sent, bloating, upper abd pain Time Seen by Provider: 01/30/25 17:22 History of Present Illness: 59-year-old female with a history of ischemic cardiomyopathy, coronary artery disease and hypertension who presents emergency room with abdominal pain. She says she had a colonoscopy and endoscopy last Thursday. She said over the last couple of days she has now developed upper abdominal pain and epigastric pain anytime she eats or drinks anything. No chest pain. No fevers. No altered mental status. She says she feels very bloated Related Data Home Medications ?Medication ?Instructions ?Recorded ?Confirmed albuterol sulfate 0.63 mg/3 mL 0.83 mg inhalation QID PRN 02/17/22 01/25/24 solution for nebulization breathing difficulty montelukast 10 mg tablet 10 mg PO DAILY 02/17/22 01/25/24 topiramate 100 mg tablet 100 mg PO DAILY 02/17/22 01/25/24 rosuvastatin 40 mg tablet 40 mg PO DAILY 01/25/24 01/25/24 Previous Rx's ?Medication ?Instructions ?Recorded ferrous sulfate 325 mg (65 mg 325 mg PO BID #60 tabs 02/21/22 iron) tablet metoprolol tartrate 25 mg tablet 25 mg PO BID@0900,2100 #180 tabs 04/01/22 aspirin 81 mg tablet,delayed 81 mg PO DAILY #90 tabs 02/16/23 release pantoprazole 40 mg tablet,delayed 40 mg PO DAILY #90 tabs 06/26/24 release losartan 50 mg tablet See Rx Instructions .Route 12/07/24 .COMPLEX #60 tabs sucralfate 1 gram tablet (Carafate) 1 g PO TID 4 weeks #84 tabs 01/30/25 Allergies Allergy/AdvReac Type Severity Reaction Status Date / Time doxycycline Allergy Mild Blisters Verified 01/30/25 17:13 Sulfa (Sulfonamide Allergy Unknown Verified 01/30/25 17:13 Antibiotics) Review of Systems Narrative: Constitutional symptoms: Negative except as documented in HPI. Skin symptoms: Negative except as documented in HPI. Eye symptoms: Negative except as documented in HPI. ENMT symptoms: Negative except as documented in HPI. Respiratory symptoms: Negative except as documented in HPI. Cardiovascular symptoms: Negative except as documented in HPI. Gastrointestinal symptoms: Negative except as documented in HPI. Genitourinary symptoms: Negative except as documented in HPI. Musculoskeletal symptoms: Negative except as documented in HPI. Neurologic symptoms: Negative except as documented in HPI. Psychiatric symptoms: Negative except as documented in HPI. Endocrine symptoms: Negative except as documented in HPI. PFSH ED PFSH: Medical History (Updated 01/30/25 @ 19:23 by Julienne Arriaga MD) Ischemic cardiomyopathy Coronary artery disease Tobacco abuse NSTEMI (non-ST elevated myocardial infarction) Hypertension Surgical History History of cholecystectomy History of bladder surgery History of hysterectomy Family History Other CAD (coronary artery disease) Cancer Social History Smoking and tobacco/nicotine status: current every day tobacco/nicotine user Alcohol intake: current Alcohol intake frequency: few times a month Physical Exam Narrative: EXAM NARRATIVE: General: Alert, no acute distress. Skin: Warm, dry. Head: Normocephalic, atraumatic. Neck: Supple, trachea midline. Eye: Extraocular movements are intact. Ears, nose, mouth and throat: mucosa moist. Cardiovascular: Regular, Normal peripheral perfusion. Respiratory: Lungs are clear to auscultation, respirations are non-labored, breath sounds are equal, Symmetrical chest wall expansion. Gastrointestinal: Soft, Nontender, Non distended Musculoskeletal: Normal ROM, no deformity. Neurological: Alert and oriented, No focal neurological deficit observed. Psychiatric: Cooperative, appropriate mood & affect. Course Vital Signs: Vital signs: Vital Signs Temperature 97.9 F 01/30/25 17:05 Pulse Rate 76 01/30/25 19:17 Respiratory Rate 16 01/30/25 17:05 Blood Pressure 169/97 01/30/25 19:17 Pulse Oximetry 97 01/30/25 19:17 Oxygen Delivery Me thod Room Air 01/30/25 19:17 MDM - Abdominal Pain Medical Decision Making Medical decision making: Differential diagnosis including but not limited to and based on the above HPI, review of systems and physical exam: In this patient with epigastric pain differential would include cholelithiasis or cholecystitis. Hepatitis. Diverticulitis. Constipation. UTI. colitis. small bowel obstruction. crohn's flare. pancreatitis. gastritis. peptic ulcer. also concern for acute cardiac event. Orders placed to evaluate differential diagnosis based on the above differential, HPI and physical exam Abdomen x-ray: Nonspecific bowel gas pattern. No evidence of free air or obstruction. Films were interpreted by myself the emergency room provider and pending final radiology review. Lab Review: Laboratory results were reviewed and interpreted by myself the emergency room physician. No leukocytosis. No anemia. No renal failure. Urinalysis is negative for infection. Liver enzymes are normal. Patient had a normal upper endoscopy recently and had 2 polyps removed on colonoscopy. I reviewed the patient's medical record. Reexamination: Patient says she feels somewhat better with GI cocktail. We also discussed that prior to endoscopy she had been taking Carafate which actually was helping her symptoms. This was why she had the endoscopy. No increased work of breathing. No altered mental status. No current abdominal pain Assessment and plan: Epigastric pain Dyspepsia ? GI cocktail. - Discharged home - Discussed plan with patient. Answered any questions. - Evaluation and treatment of this problem were appropriate in the emergency setting. Lab Data 01/30/25 18:36 01/30/25 18:36 Labs/Radiology: Laboratory Results WBC 7.97 10^3/uL (3.29-11.43) 01/30/25 18:36 RBC 4.90 10^6/uL (3.85-5.65) 01/30/25 18:36 Hgb 14.80 g/dL (11.27-16.99) 01/30/25 18:36 Hct 43.6 % (36-47) 01/30/25 18:36 MCV 89.0 fl (85-98) 01/30/25 18:36 MCH 30.2 pg (27-33) 01/30/25 18:36 MCHC 33.9 g/dL (30-55) 01/30/25 18:36 RDW 13.1 % (12.1-15.1) 01/30/25 18:36 Plt Count 189 10^3/cmm (157-399) 01/30/25 18:36 MPV 11.2 fL (7.4-10.4) H 01/30/25 18:36 Neut % (Auto) 68.7 % 01/30/25 18:36 Lymph % (Auto) 21.5 % 01/30/25 18:36 Walker % (Auto) 7.3 % 01/30/25 18:36 Eos % (Auto) 1.6 % 01/30/25 18:36 Baso % (Auto) 0.6 % 01/30/25 18:36 Neut # (Auto) 5.48 10^3/uL (1.8-7.7) 01/30/25 18:36 Lymph # (Auto) 1.7 10^3/uL (0.8-4.8) 01/30/25 18:36 Walker # (Auto) 0.6 10^3/uL (0.2-0.9) 01/30/25 18:36 Eos # (Auto) 0.1 10^3/uL (0.0-0.8) 01/30/25 18:36 Baso # (Auto) 0.1 10^3/uL (0.0-0.1) 01/30/25 18:36 Nucleated RBC % (auto) 0 % 01/30/25 18:36 Nucleated RBCs # 0.0 /100WBC 01/30/25 18:36 Sodium 143 mmol/L (136-145) 01/30/25 18:36 Potassium 4.0 mmol/L (3.5-5.1) 01/30/25 18:36 Chloride 109 mmol/L (98-107) H 01/30/25 18:36 Carbon Dioxide 22 mmol/L (22-29) 01/30/25 18:36 Anion Gap 16.0 (5-19) 01/30/25 18:36 BUN 10 mg/dL (8-23) 01/30/25 18:36 Creatinine 0.8 mg/dL (0.5-0.9) 01/30/25 18:36 GFR Calculation 73.2 mL/min (90-130) L 01/30/25 18:36 Glucose 86 mg/dL (65-115) 01/30/25 18:36 Calculated Osmolality 294 mOsm/kg (285-295) 01/30/25 18:36 Lactic Acid 0.7 mmol/L (0.5-2.2) 01/30/25 18:36 Calcium 9.4 mg/dL (8.5-10.5) 01/30/25 18:36 Total Bilirubin 0.3 mg/dL (0.15-1.2) 01/30/25 18:36 AST 16 U/L (0-32) 01/30/25 18:36 ALT 16 U/L (0-33) 01/30/25 18:36 Alkaline Phosphatase 98 U/L (35-105) 01/30/25 18:36 Troponin T Baseline < 6 ng/L (0-10) 01/30/25 18:36 Total Protein 7.1 g/dL (6.6-8.7) 01/30/25 18:36 Albumin 4.2 g/dL (3.5-5.2) 01/30/25 18:36 Globulin 2.9 g/dL (1.3-4.6) 01/30/25 18:36 Lipase 1022 U/L (13-60) H 01/30/25 18:36 Urine Color Yellow (Yellow) 01/30/25 18:22 Urine Appearance Clear (CLEAR) 01/30/25 18:22 Urine pH 6.0 (5-7) 01/30/25 18:22 Ur Specific [place] 1.015 (1.005-1.030) 01/30/25 18:22 Urine Protein Negative (Negative) 01/30/25 18:22 Urine Glucose (UA) Negative (Normal) 01/30/25 18:22 Urine Ketones Negative (Negative) 01/30/25 18:22 Urine Blood Negative (Negative) 01/30/25 18:22 Urine Nitrate Negative (Negative) 01/30/25 18:22 Urine Bilirubin Negative (Negative) 01/30/25 18:22 Urine Urobilinogen 1.0 mg/dL (Negative) 01/30/25 18:22 Ur Leukocyte Esterase Trace (Negative) A 01/30/25 18:22 Urine RBC None /hpf (0-2) 01/30/25 18:22 Urine WBC 5-10 /hpf (0-5) H 01/30/25 18:22 Ur Squamous Epith Cells 10-15 /hpf (0-5) H 01/30/25 18:22 Amorphous Sediment Not Reportable 01/30/25 18:22 Urine Bacteria Trace /hpf (NONE) 01/30/25 18:22 XR interpretation done by ED provider, pending radiology final review Discharge Plan Discharge Patient Disposition: Home Clinical Impression: Epigastric pain, Dyspepsia Condition: Stable Prescriptions: New sucralfate [Carafate] 1 gram tablet 1 g PO TID 28 Days Qty: 84 0RF Rx Instructions: with meals No Action metoprolol tartrate 25 mg tablet 25 mg PO BID@0900,2100 Qty: 180 3RF rosuvastatin 40 mg tablet 40 mg PO DAILY aspirin 81 mg tablet,delayed release (DR/EC) 81 mg PO DAILY Qty: 90 2RF pantoprazole 40 mg tablet,delayed release (DR/EC) 40 mg PO DAILY Qty: 90 3RF losartan 50 mg tablet See Rx Instructions .ROUTE .COMPLEX Qty: 60 0RF Dose Instruction: Take 1 tablet by mouth twice daily Rx Instructions: Take 1 tablet by mouth twice daily albuterol sulfate 0.63 mg/3 mL Solution For Nebulization 0.83 mg INHALATION QID PRN (Reason: breathing difficulty) montelukast 10 mg Tablet 10 mg PO DAILY topiramate 100 mg Tablet 100 mg PO DAILY ferrous sulfate 325 mg (65 mg iron) tablet 325 mg PO BID Qty: 60 0RF Discharge Orders: Discharge ED (Routine); Ordered 01/30/25 Ordered By: Julienne Arriaga Referrals: Beto Peterson MD [Primary Care Provider, Family Practice] Discharge Diet: Advance as tolerated Discharge Activity: Increase activity as tolerated Patient Instructions: Abdominal Pain (ED), Opioid Safety, Pain Management, Patient Portal & Anabel Instructions Activity Restrictions/Additional Instructions: Thank you for choosing [facility] for your healthcare needs today. You have been screened and evaluated and felt safe for discharge. Health conditions do change or evolve sometimes and as such it is important that you follow up with your Primary Doctor to be re checked, 3-5 days is a general good time frame for follow up. You are always welcome to return to the ED for re assessment if your symptoms are worsening or you have new concerns Print Language: Croatian Coding Level of Care Code ED Corporate Director Of Human Resources for Jono Whatley
--- NOTE | 2025-01-30 18:42 | XRR_ITS ---
PROCEDURE INFORMATION: Exam: XR Abdomen Exam date and time: 01/30/2025 7:04 PM Age: 59 years old Clinical indication: Abdominal pain TECHNIQUE: Imaging protocol: Radiologic exam of the abdomen. Views: Frontal supine view of the abdomen. 1 View. COMPARISON: CT abdomen pelvis w con* [id number] 02/20/2022 2:51 PM FINDINGS: Gastrointestinal tract: Normal. No bowel dilation. Other: Cholecystectomy clips in the right upper quadrant. Bones/joints: Unremarkable. XR/XR abdomen 1V* [id number] IMPRESSION: Nonobstructive bowel gas pattern.
[2025-01-30 18:46] LABS: Glucose Urine UA Negative (Normal); Nitrate Urine Negative (Negative); Specific Gravity, Urine 1.015 (1.005-1.030)
[2025-01-30 18:57] LABS: Hematocrit 43.6 % (36-47); Hemoglobin 14.80 g/dL (11.27-16.99); Mean Corpuscular HGB Conc 33.9 g/dL (30-55); Mean Corpuscular Hemoglobin 30.2 pg (27-33); Mean Corpuscular Volume 89.0 fl (85-98); Nucleated Red Blood Cells % 0 %; Platelet Count 189 10^3/cmm (157-399); Red Blood Count 4.90 10^6/uL (3.85-5.65); White Blood Count 7.97 10^3/uL (3.29-11.43)
[2025-01-30] MEDS: lidocaine 2% viscous 15 ML, aluminum-mag hydrox-simethicon 30 ML, sucralfate oral liq 1 GM PO (19:10)
[2025-01-30 19:16] LABS: Lactic Sepsis W/Reflex 0.7 mmol/L (0.5-2.2)
[2025-01-30 19:17] VITALS: BP 169/97; PULSE 76; O2SAT 97
[2025-01-30 19:17] LABS: Alanine Aminotransferase 16 U/L (0-33); Albumin Level 4.2 g/dL (3.5-5.2); Alkaline Phosphatase 98 U/L (35-105); Anion Gap 16.0 (5-19); Aspartate Amino Transferase 16 U/L (0-32); Blood Urea Nitrogen 10 mg/dL (8-23); Calcium 9.4 mg/dL (8.5-10.5); Carbon Dioxide 22 mmol/L (22-29); Chloride 109 mmol/L (98-107); Creatinine Clr Calc Pharmacy 69.9342; Globulin 2.9 g/dL (1.3-4.6); Glucose 86 mg/dL (65-115); Osmolality Calculated 294 mOsm/kg (285-295); Potassium 4.0 mmol/L (3.5-5.1); Sodium 143 mmol/L (136-145); Total Protein 7.1 g/dL (6.6-8.7)
[2025-01-30 19:18] LABS: Troponin(5th) Baseline < 6 ng/L (0-10)
--- NOTE | 2025-01-30 19:21 | ECG_ITS ---
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 Measurements Intervals [place] Rate: 77 P: 67 NH: 146 QRS: 36 QRSD: 86 T: 85 QT: 372 QTc: 421 Interpretive Statements SINUS RHYTHM POSSIBLE RIGHT VENTRICULAR CONDUCTION DELAY [RSR (QR) IN V1/V2] SEPTAL MYOCARDIAL INFARCTION , OF INDETERMINATE AGE [40+ ms Q WAVE IN V1/V2] Compared to ECG 01/30/2025 17:08:19 Myocardial infarct finding now present Electronically Signed On 02-02-2025 09:02:12 CDT by Kwesi Ayers M.D. [email or web address]
[2025-01-30 19:24] LABS: Lipase 1022 U/L (13-60)
--- NOTE | 2025-01-30 19:28 | CTR_ITS ---
PROCEDURE INFORMATION: Exam: CT Abdomen And Pelvis With Contrast Exam date and time: 01/30/2025 7:35 PM Age: 59 years old Clinical indication: Abdominal pain; Generalized TECHNIQUE: Imaging protocol: Computed tomography of the abdomen and pelvis with contrast. Radiation optimization: All CT scans at this facility use at least one of these dose optimization techniques: automated exposure control; mA and/or kV adjustment per patient size (includes targeted exams where dose is matched to clinical indication); or iterative reconstruction. Contrast material: OMNIPAQUE 350; Contrast volume: 100 ml; Contrast route: INTRAVENOUS (IV); COMPARISON: CT abdomen pelvis w con* [id number] 02/20/2022 2:51 PM RADIATION DOSE METRICS: Total DLP (mGy-cm): 375.43 FINDINGS: Lungs: Scattered calcified pulmonary nodules in the lung bases, likely granulomas. Subsegmental atelectasis/scarring in the right lower lobe. Liver: Normal. No mass. Gallbladder and biliary ducts: The gallbladder is surgically absent. No biliary ductal dilation. Pancreas: There is a 0.9 x 0.4 cm hypoattenuating lesion in the body of the pancreas. No pancreatic ductal dilation. Spleen: Punctate splenic calcifications, likely related to prior granulomatous disease. Adrenal glands: Normal. No mass. Kidneys and ureters: No hydronephrosis. Symmetric nephrograms. Stomach and bowel: No bowel obstruction. No mucosal thickening. Appendix: Normal appendix Intraperitoneal space: No free air. No free fluid. Vasculature: Atherosclerosis. No aortic aneurysm. Lymph nodes: No lymphadenopathy by CT size criteria. Urinary bladder: The urinary bladder is unremarkable. Reproductive: Unremarkable as visualized. Bones/joints: No acute fracture. Soft tissues: Unremarkable. Other findings: Normal. No mass. CT/CT abdomen pelvis w con* [id number] IMPRESSION: 1. No acute process in the abdomen or pelvis. 2. Subcentimeter hypoattenuating pancreatic lesion, indeterminate on this exam. Recommend pancreas protocol MRI on a nonemergent basis for further characterization.
[2025-01-30] MEDS: iohexol 350 mg/mL 500 mL Btl (per mL) IV (19:40)
[2025-01-30 20:00] VITALS: BP 189/101; PULSE 79; RESP 17; TEMP 36.4; O2SAT 94
[2025-01-30 20:13] VITALS: BP 184/98; PULSE 79; O2SAT 97
[2025-01-30 20:38] LABS: Troponin 5 2HR 6.38 ng/L (0-10); Troponin 5 2HR Delta 0.38001 ABS# (0-10)
[2025-01-30 20:43] LABS: Cholesterol 98 mg/dL (0-200); HDL Cholesterol 36 mg/dL (60-100); Magnesium 2.0 mg/dL (1.7-2.3); Triglycerides 226 mg/dL (0-150)
[2025-01-30] MEDS: pantoprazole 40 mg SDV IVP (20:48)
[2025-01-30 20:55] VITALS: BMI 22.9
--- NOTE | 2025-01-30 23:20 | PM.HP ---
Providers/Chief Complaint Admitting Physician: Robert Coon MD Primary Care Provider: Beto Peterson MD Chief Complaint: Roylance sent, bloating, upper abd pain History of Present Illness As per the previous charts and the patient Esther Nicole is a 59 year old female with past medical history of hypertension and active smoker, chronic artery disease s/p PCI to RCA following with cardiology, came to hospital with abdominal pain without any nausea or vomiting. The patient has recent endoscopy and colonoscopy that was unremarkable. On presentation to the ER her lipase was high and with abdominal pain that admitted as a case of acute pancreatitis. the patient reported unintentional weight loss even with adequate appetite. No history of cancers in the family. CT scan of the abdomen in the ER showed several subcentimeter hypoattenuating pancreatic lesion and recommended MRI abdomen. There was no history of fever, chills or any jaundice discoloration of skin. No change in her urinary habits. The patient did not report any recent vaccination, orthopnea PND, chest pain or pressure, rash or any diarrhea. Review of Systems General: Reports: 10 or more systems reviewed and unremarkable except in HPI and below Medications/Allergies Home Medications ?Medication ?Instructions ?Recorded ?Confirmed ?Last Taken ?Type albuterol sulfate 0.63 mg/3 mL 0.83 mg inhalation QID PRN 02/17/22 01/30/25 Unknown History solution for nebulization breathing difficulty montelukast 10 mg tablet 10 mg PO DAILY 02/17/22 01/30/25 01/30/25 History topiramate 100 mg tablet 100 mg PO DAILY 02/17/22 01/30/25 01/30/25 History ferrous sulfate 325 mg (65 mg 325 mg PO BID #60 tabs 02/21/22 01/25/24 Unknown Rx iron) tablet aspirin 81 mg tablet,delayed 81 mg PO DAILY #90 tabs 02/16/23 01/30/25 01/30/25 Rx release rosuvastatin 40 mg tablet 40 mg PO DAILY 01/25/24 01/30/25 01/30/25 History pantoprazole 40 mg tablet,delayed 40 mg PO DAILY #90 tabs 06/26/24 01/30/25 01/30/25 Rx release losartan 50 mg tablet 50 mg PO BID 01/30/25 01/30/25 01/30/25 07:00 History metoprolol tartrate 25 mg tablet 50 mg PO BID@0900,2100 01/30/25 01/30/25 01/30/25 07:00 History sucralfate 1 gram tablet (Carafate) 1 g PO TID 4 weeks #84 tabs 01/30/25 Unknown Rx Allergies Allergy/AdvReac Type Severity Reaction Status Date / Time doxycycline Allergy Mild Blisters Verified 01/30/25 17:13 Sulfa (Sulfonamide Allergy Unknown Verified 01/30/25 17:13 Antibiotics) PFSH Acute PFSH: Medical History (Updated 01/30/25 @ 19:31 by Julienne Arriaga MD) Ischemic cardiomyopathy Coronary artery disease Tobacco abuse NSTEMI (non-ST elevated myocardial infarction) Hypertension Surgical History History of cholecystectomy History of bladder surgery History of hysterectomy Family History Other CAD (coronary artery disease) Cancer Social History Smoking and tobacco/nicotine status: current every day tobacco/nicotine user Alcohol intake: current Alcohol intake frequency: few times a month Vitals/I&O/Wt Last Vital Signs Temp 97.6 F 01/30/25 20:00 Pulse 79 01/30/25 20:13 Resp 17 01/30/25 20:00 BP 184/98 01/30/25 20:13 Pulse Ox 97 01/30/25 20:13 O2 Del Method Room Air 01/30/25 20:55 01/30/25 01/30/25 01/31/25 14:59 22:59 06:59 Intake Total 1999 Output Total 450 / 450 Balance 1550 / 1550 Weight last 48 hrs Weight 62.596 kg Weight 62.596 kg Physical Exam Narrative: General: Alert and oriented, lying comfortably without any distress HEENT: Normocephalic, atraumatic, grossly unremarkable exam Cardio: normal rate rhythm, normal S1-S2 without any murmurs, rubs, or gallops and JVD normal Respiratory: normal vascular breathing on auscultation without any wheezes, stridor, rhonchi GI: Abdomen soft, mildly tender on deep palpation, nondistended, normoactive bowel sounds present all 4 quadrants, Neuro: intact cranial nerves motor and sensory and cerebellar/coordination function without any focal neurological deficit Behavior: Appropriate and cooperative Extremities: Adequate palpable pulses, no edema or cyanosis observed Skin: grossly unremarkable exam Data 01/30/25 18:36 01/30/25 18:36 Micro: Microbiology 01/30/25 18:40 Blood Culture - Preliminary Blood SPECIMEN COLLECTED 01/30/25 18:36 Blood Culture - Preliminary Blood SPECIMEN COLLECTED A&P Assessment and plan 1. Acute pancreatitis: Continue fluids with Ringer lactate 1 to 5 mL/h Adequate analgesia CT head showed some hypoattenuating lesion of the pancreas, consider MRI pancreas. Patient is hungry and did not report abdominal pain, clear fluids diet to start and later to advance as tolerated 2. Coronary artery disease: Aspirin 81 mg daily to continue 3. Tobacco abuse: Adequate counseling provided Nicotine patch applied 4. Hypertension: Continue home medication losartan 50 mg twice daily and metoprolol 50 mg twice daily PDMP PDMP Reviewed: Not Reviewed Attestations Medical Necessity Statement*: Esther Nicole's hospital stay will be less than 2 midnights for management of acute pancreatitis Time Spent in Patient Care: 16 - 35 minutes (>than 50% of time spent in counselling and/or direct pt care on unit). Other Attestations: Patient condition has been discussed at length with the patient/family, I have independently reviewed the chart labs imaging/diagnostics/EKG. the goals of care and code status with the patient/family/NOK/legal medical office representative, and documented accordingly. The patient/family has been informed about the current condition and further plan of care. Agreed with the plan of care and understood without any language barrier. Every effort was made to ensure accuracy of creative producer. Any obvious errors or omissions should be clarified with the author of the document. Coding Level of Care Code Acute Code for g Fwd Diagnoses Acute pancreatitis K85.90 Coronary artery disease I25.10 Tobacco abuse Z72.0 Hypertension I10
[2025-01-31] VITALS (7 sets, daily range): BP systolic 150–172; BP diastolic 80–100; PULSE 55–78; RESP 16; TEMP 36.4–36.7; O2SAT 92–98
[2025-01-31] MEDS: LOSARTAN 25 MG TABLET 50 MG PO (00:55)
[2025-01-31 01:33] LABS: Hematocrit 40.6 % (36-47); Hemoglobin 13.90 g/dL (11.27-16.99); Mean Corpuscular HGB Conc 34.2 g/dL (30-55); Mean Corpuscular Hemoglobin 30.3 pg (27-33); Mean Corpuscular Volume 88.5 fl (85-98); Nucleated Red Blood Cells % 0 %; Platelet Count 180 10^3/cmm (157-399); Red Blood Count 4.59 10^6/uL (3.85-5.65); White Blood Count 8.58 10^3/uL (3.29-11.43)
[2025-01-31 01:51] LABS: Alanine Aminotransferase 16 U/L (0-33); Albumin Level 3.6 g/dL (3.5-5.2); Alkaline Phosphatase 88 U/L (35-105); Anion Gap 16.2 (5-19); Aspartate Amino Transferase 19 U/L (0-32); Blood Urea Nitrogen 8 mg/dL (8-23); Calcium 8.4 mg/dL (8.5-10.5); Carbon Dioxide 19 mmol/L (22-29); Chloride 109 mmol/L (98-107); Creatinine Clr Calc Pharmacy 79.9248; Globulin 2.6 g/dL (1.3-4.6); Glucose 97 mg/dL (65-115); Osmolality Calculated 290 mOsm/kg (285-295); Potassium 3.2 mmol/L (3.5-5.1); Sodium 141 mmol/L (136-145); Total Protein 6.2 g/dL (6.6-8.7)
[2025-01-31 01:53] LABS: Troponin 5 6HR 8.28 ng/L (0-10); Troponin 5 6HR Delta 2.28001 ng/L (0-12)
[2025-01-31 09:25] LABS: Alcohol Level < 10 mg/dL (0-10)
--- NOTE | 2025-01-31 10:26 | PC.CHAP ---
Pastoral Care Encounter/Spiritual Assessment Type of Contact [] Declined collections manager visit [] Patient/Family/Request visit [] Outpatient visit [] Follow-up visit [] Physician referral [] Code/Alert [x] Routine visit [] Staff referral [] Actively dying [] Patient sleeping [] Family support [] [] Out of room [] Palliative care [] [] Receiving care in room [] Pre-surgical visit [] Trauma [] Long length of stay [] ICU visit [] Other: Relational/Emotional Strength [x] Patient feels connected with others/family/visitors/staff [] Distress [] Loneliness/isolation [] Abandonment Spirituality of Patient [x] Person of Hailey [] Attends Evangelical of their Hailey [x] Believes in Prayer [] Reads Bible or Methodist materials [] There are Spiritual issues to be addressed Rn Provider Relations Interventions [x] Prayer [x] Active listening [] Non-anxious presence [x] Spiritual/emotional support [] Crisis/trauma care [] Spiritual counseling [] Bereavement support [] Provided bereavement packet [] Provided Bible/devotional materials [] Provided toy/stuffed animal, coloring book to patient or family member [] Provided Communion [] Anointing/[place] [] Salvation [x] Completed spiritual assessment [] Other: Impact on Illness or Injury [] Angry [] Fearful [] Anxious [] Often cries [] Exhaustion [] Unable to work [] Unable to attend adventism [] Unable to walk/stand [] Unable to read [] Unable to drive [] Unable to eat/drink [] Unable to sleep [] Unable to be with family [] Patient intubated [] Other: Summary Time spent with patient 5 min
--- NOTE | 2025-01-31 12:51 | PM.DCS ---
Discharge Providers Date of Admission: 01/30/25 19:34 Date of Discharge: January 31, 2025 Attending Provider at Admission: Robert Coon MD Attending Provider at Discharge: [place] Herrera MD Primary Care Provider: Beto Peterson MD Diagnoses at Discharge Discharge Diagnosis 1. Acute pancreatitis: 2. Coronary artery disease involving [place] coronary artery of [place] heart without angina pectoris: 3. Tobacco abuse: 4. Primary hypertension: Reason for Visit Reason for Visit: Kourtney sent, bloating, upper abd pain Hospital Course Hospital Course 59-year-old lady who was admitted to the hospital after presenting with abdominal pain. Patient states her symptoms had started 3 to 4 days ago. She had had a twisted ice tea night prior to onset of symptoms but does not usually drink alcohol. She did not have any nausea vomiting or diarrhea. She recently underwent an endoscopy and colonoscopy 2 days prior to onset of symptoms, which revealed 2 polyps which were removed. She follows with Dr. Oconnell for the same. She reports a history of having unexplained weight loss over the past few months. Patient stated that eating seem to make her symptoms worse. She had not modified her diet at home in any way yet. Patient was found to have an elevated lipase level. CT of the abdomen and pelvis showed a surgically absent gallbladder, no biliary ductal dilatation. Incidentally noted was a hypoattenuating lesion measuring 0.9 x 0.4 cm in the body of the pancreas without any pancreatic ductal dilatation. This appears to be an incidental finding at this time. Nonemergent MRI of the pancreas is recommended as an outpatient. Overall clinically patient was suspected to have pancreatitis with uncertain trigger. Triglyceride level was normal. She was treated with IV fluids, pain management, bowel rest with clear liquid diet. She is feeling better today. States that liquid diet does not seem to trigger her abdominal pain. Trial to a GI soft this afternoon. She states she drinks almost 3 L of fluid per day. Recommended to keep up with her oral intake. Patient was discharged this afternoon after a trial of GI soft diet, she did not report any nausea or vomiting afterwards. To return to ER in case of fever more than 101 Fahrenheit, shortness of breath, worsening abdominal pain or nausea vomiting diarrhea. Physical Exam Narrative: General: No acute distress, AO x3 HEENT: PERRLA, pupils bilaterally equal and reactive, pallors not present Chest: Normal vesicular breath sounds, no added sounds, equal good air entry bilaterally CVS: S1-S2 regular, no murmurs, no tachycardia, no gallops, no rubs Abdomen: Soft, nontender, no organomegaly, bowel sounds present Neuro: No focal deficits, no facial deformity, AO x3, power 5/5 in all limbs Discharge Data Studies Completed and Pending Completed Studies During Hospitalization Category Date Time Status CT abdomen pelvis w con* [id number] Stat Cat Scan 01/30/25 19:28 Completed XR abdomen 1V* [id number] Stat Exams 01/30/25 18:42 Completed Pending at discharge Category Date Time Status Blood Culture Stat Lab 01/30/25 18:40 Results Radiology Impressions Abdomen X-Ray 01/30/25 18:42 IMPRESSION: Nonobstructive bowel gas pattern. Abdomen/Pelvis CT 01/30/25 19:28 IMPRESSION: 1. No acute process in the abdomen or pelvis. 2. Subcentimeter hypoattenuating pancreatic lesion, indeterminate on this exam. Recommend pancreas protocol MRI on a nonemergent basis for further characterization. Laboratory Results WBC 8.58 10^3/uL (3.29-11.43) 01/31/25 01:11 RBC 4.59 10^6/uL (3.85-5.65) 01/31/25 01:11 Hgb 13.90 g/dL (11.27-16.99) 01/31/25 01:11 Hct 40.6 % (36-47) 01/31/25 01:11 MCV 88.5 fl (85-98) 01/31/25 01:11 MCH 30.3 pg (27-33) 01/31/25 01:11 MCHC 34.2 g/dL (30-55) 01/31/25 01:11 RDW 13.1 % (12.1-15.1) 01/31/25 01:11 Plt Count 180 10^3/cmm (157-399) 01/31/25 01:11 MPV 10.9 fL (7.4-10.4) H 01/31/25 01:11 Neut % (Auto) 70.4 % 01/31/25 01:11 Lymph % (Auto) 19.6 % 01/31/25 01:11 [place] % (Auto) 7.0 % 01/31/25 01:11 Eos % (Auto) 1.9 % 01/31/25 01:11 Baso % (Auto) 0.6 % 01/31/25 01:11 Neut # (Auto) 6.05 10^3/uL (1.8-7.7) 01/31/25 01:11 Lymph # (Auto) 1.7 10^3/uL (0.8-4.8) 01/31/25 01:11 [place] # (Auto) 0.6 10^3/uL (0.2-0.9) 01/31/25 01:11 Eos # (Auto) 0.2 10^3/uL (0.0-0.8) 01/31/25 01:11 Baso # (Auto) 0.1 10^3/uL (0.0-0.1) 01/31/25 01:11 Nucleated RBC % (auto) 0 % 01/31/25 01:11 Nucleated RBCs # 0.0 /100WBC 01/31/25 01:11 Sodium 141 mmol/L (136-145) 01/31/25 01:11 Potassium 3.2 mmol/L (3.5-5.1) L 01/31/25 01:11 Chloride 109 mmol/L (98-107) H 01/31/25 01:11 Carbon Dioxide 19 mmol/L (22-29) L 01/31/25 01:11 Anion Gap 16.2 (5-19) 01/31/25 01:11 BUN 8 mg/dL (8-23) 01/31/25 01:11 Creatinine 0.7 mg/dL (0.5-0.9) 01/31/25 01:11 GFR Calculation 85.4 mL/min (90-130) L 01/31/25 01:11 Glucose 97 mg/dL (65-115) 01/31/25 01:11 Calculated Osmolality 290 mOsm/kg (285-295) 01/31/25 01:11 Lactic Acid 0.7 mmol/L (0.5-2.2) 01/30/25 18:36 Calcium 8.4 mg/dL (8.5-10.5) L 01/31/25 01:11 Phosphorus 3.5 mg/dL (2.5-4.5) 01/30/25 20:13 Magnesium 2.0 mg/dL (1.7-2.3) 01/30/25 20:13 Total Bilirubin 0.3 mg/dL (0.15-1.2) 01/31/25 01:11 AST 19 U/L (0-32) 01/31/25 01:11 ALT 16 U/L (0-33) 01/31/25 01:11 Alkaline Phosphatase 88 U/L (35-105) 01/31/25 01:11 Troponin T Baseline < 6 ng/L (0-10) 01/30/25 18:36 Troponin T 120 Minute 6.38 ng/L (0-10) 01/30/25 20:13 Delta Troponin T 0.87564 ABS# (0-10) 01/30/25 20:13 Troponin T Hi Sens 6Hr 8.28 ng/L (0-10) 01/31/25 01:11 Troponin T Hi Sens 6Hr Delta 2.91554 ng/L (0-12) 01/31/25 01:11 Total Protein 6.2 g/dL (6.6-8.7) L 01/31/25 01:11 Albumin 3.6 g/dL (3.5-5.2) 01/31/25 01:11 Globulin 2.6 g/dL (1.3-4.6) 01/31/25 01:11 Triglycerides 226 mg/dL (0-150) H 01/30/25 20:13 Cholesterol 98 mg/dL (0-200) 01/30/25 20:13 LDL Cholesterol, Calc 17 mg/dL (50-129) L 01/30/25 20:13 HDL Cholesterol 36 mg/dL (60-100) L 01/30/25 20:13 LDL/HDL Ratio 0.47 RATIO (0.00-3.22) 01/30/25 20:13 Cholesterol/HDL Ratio 2.72 mg/dL (0.0-4.40) 01/30/25 20:13 Lipase 1022 U/L (13-60) H 01/30/25 18:36 Urine Color Yellow (Yellow) 01/30/25 18:22 Urine Appearance Clear (CLEAR) 01/30/25 18:22 Urine pH 6.0 (5-7) 01/30/25 18:22 Ur Specific [place] 1.015 (1.005-1.030) 01/30/25 18:22 Urine Protein Negative (Negative) 01/30/25 18:22 Urine Glucose (UA) Negative (Normal) 01/30/25 18:22 Urine Ketones Negative (Negative) 01/30/25 18:22 Urine Blood Negative (Negative) 01/30/25 18:22 Urine Nitrate Negative (Negative) 01/30/25 18:22 Urine Bilirubin Negative (Negative) 01/30/25 18:22 Urine Urobilinogen 1.0 mg/dL (Negative) 01/30/25 18:22 Ur Leukocyte Esterase Trace (Negative) A 01/30/25 18:22 Urine RBC None /hpf (0-2) 01/30/25 18:22 Urine WBC 5-10 /hpf (0-5) H 01/30/25 18:22 Ur Squamous Epith Cells 10-15 /hpf (0-5) H 01/30/25 18:22 Amorphous Sediment Not Reportable 01/30/25 18:22 Urine Bacteria Trace /hpf (NONE) 01/30/25 18:22 Ethyl Alcohol < 10 mg/dL (0-10) 01/31/25 01:11 Vitals Last Vital Signs Temp 97.7 F 01/31/25 11:41 Pulse 55 L 01/31/25 11:41 Resp 16 01/31/25 11:41 BP 151/81 01/31/25 11:41 Pulse Ox 95 01/31/25 11:41 O2 Del Method Room Air 01/31/25 11:41 Discharge Plan Discharge Patient Disposition: Home Condition: Stable Prescriptions: New sucralfate [Carafate] 1 gram tablet 1 g PO TID 28 Days Qty: 84 0RF Rx Instructions: with meals No Action rosuvastatin 40 mg tablet 40 mg PO DAILY aspirin 81 mg tablet,delayed release (DR/EC) 81 mg PO DAILY Qty: 90 2RF pantoprazole 40 mg tablet,delayed release (DR/EC) 40 mg PO DAILY Qty: 90 3RF albuterol sulfate 0.63 mg/3 mL Solution For Nebulization 0.83 mg INHALATION QID PRN (Reason: breathing difficulty) montelukast 10 mg Tablet 10 mg PO DAILY topiramate 100 mg Tablet 100 mg PO DAILY ferrous sulfate 325 mg (65 mg iron) tablet 325 mg PO BID Qty: 60 0RF losartan 50 mg tablet 50 mg PO BID Rx Instructions: Take 1 tablet by mouth twice daily metoprolol tartrate 25 mg tablet 50 mg PO BID@0900,2100 Other Ambulatory Orders: MR abdomen wo/w con* [id number] (Routine) Timeframe: 2 Weeks Facility: [facility] - Location: Radiology [facility] Ordered By: [place] Herrera Referrals: Beto Peterson MD [Primary Care Provider, [facility]] - 02/07/25 1:20 pm Discharge Diet: Advance as tolerated Discharge Activity: Increase activity as tolerated Patient Instructions: Abdominal Pain (ED), Opioid Safety, Pain Management, Patient Portal & Anabel Instructions Activity Restrictions/Additional Instructions: Thank you for choosing [facility] for your healthcare needs today. You have been screened and evaluated and felt safe for discharge. Health conditions do change or evolve sometimes and as such it is important that you follow up with your Primary Doctor to be re checked, 3-5 days is a general good time frame for follow up. You are always welcome to return to the ED for re assessment if your symptoms are worsening or you have new concerns Discharge Attestations Time Spent in Discharge Care*: greater than 30 min Quality Metrics Clinical Quality Measures [ No reported AMI, CVA or VTE this stay] Coding Level of Care Code Acute Code for Chg Fwd Diagnoses Acute pancreatitis K85.90 Coronary artery disease involving [place] coronary artery of [place] heart without angina pectoris I25.10 Coronary Disease-Associated Artery/Lesion type: [place] artery [place] vs. transplanted heart: [place] heart Associated angina: without angina Tobacco abuse Z72.0 Primary hypertension I10 Hypertension type: primary hypertension
== END 2025-01-31 13:49 | disposition home or self-care (01) ==
LOC: ER 19:44 → MEDSURG 20:03
PROVIDERS: Admitting Provider Student in an Organized Health Care Education/Training Program; Emergency Provider Emergency Medicine; PCP Family Medicine; Visit Provider Student in an Organized Health Care Education/Training Program
DX: K85.90 Acute pancreatitis without necrosis or infection, unspecified (principal); I25.10 Atherosclerotic heart disease of native coronary artery without angina pectoris; I10 Essential (primary) hypertension; Z72.0 Tobacco use; Z79.82 Long term (current) use of aspirin; K21.9 Gastro-esophageal reflux disease without esophagitis; I25.2 Old myocardial infarction; Z82.49 Family history of ischemic heart disease and other diseases of the circulatory system
CPT/HCPCS: 36415; 74018; 74177; 80053; 80061; 80307; 81001; 83605; 83690; 83735; 84100; 84484; 85025; 87040; 93005; 96361; 96372; 96374; 99285; G0378; J1650; J2470; J7030; J7120; J9999

== ENCOUNTER 2025-02-17 08:33 | Outpatient (CLI) | payer OTHER, SELFPAY ==
--- NOTE | 2025-02-17 08:45 | MRR_ITS ---
PROCEDURE INFORMATION: Exam: MR Abdomen Without Contrast Exam date and time: 02/17/2025 9:26 AM Age: 59 years old Clinical indication: Abnormal findings; Abnormal radiologic finding of the abdomen; Radiologic exam and body structure: CT abd/pel; Prior surgery; Surgery date: 6+ months; Surgery type: Gb, tubal, cardiac stent; Additional info: Pancreatic mass, pancreatic mass on CT abdomen needing further assessment for TECHNIQUE: Imaging protocol: Magnetic resonance imaging of the abdomen without contrast. COMPARISON: CT abdomen pelvis w con* [id number] 01/30/2025 7:35 PM FINDINGS: Liver: No mass. Gallbladder and biliary ducts: There has been a cholecystectomy. Common bile duct measures 9 mm. 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 No communication with the pancreatic duct. Spleen: Unremarkable. No splenomegaly. Adrenal glands: Unremarkable. No mass. Kidneys: Unremarkable. No solid mass. No hydronephrosis. Stomach and bowel: Visualized stomach and intestines are unremarkable. Intraperitoneal space: No free fluid. Vasculature: No abdominal aortic aneurysm. Lymph nodes: No enlarged nodes. Bones/joints: Unremarkable. No suspicious lesions. Soft tissues: Unremarkable. MR/MR abdomen wo/w con* [id number] IMPRESSION: 1. 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 No communication with the pancreatic duct. 2. Reimaging every 1 year for 5 years is recommended. (Reference: John, 2017) REFERENCES: John GIRARD, et al. Management of Incidental Pancreatic Cysts: A White Paper of the ACR Incidental Findings Committee. J Am Blanca Radiol. 2017;14(7):911-923.
[2025-02-17] MEDS: gadobenate dimeglumine 20 mL vial 12 ML IV (09:48)
== END 2025-02-17 08:34 | disposition home or self-care (01) ==
LOC: RAD 08:35
PROVIDERS: PCP Family Medicine; Visit Provider Student in an Organized Health Care Education/Training Program
DX: K86.89 Other specified diseases of pancreas (principal); Z98.51 Tubal ligation status; Z95.5 Presence of coronary angioplasty implant and graft
CPT/HCPCS: 74183; A9577

== ENCOUNTER 2025-02-24 08:06 | Outpatient (CLI) | payer OTHER, SELFPAY ==
--- NOTE | 2025-02-24 08:14 | MM_ITS ---
WS: [id number] BILATERAL SCREENING DIGITAL TOMOSYNTHESIS MAMMOGRAM WITH CAD HISTORY: SCREENING COMPARISON: 01/22/2024, 01/17/2021 Bilateral CC and MLO views with tomosynthesis and synthetic mammography submitted. Computer aided detection analyzed. Breast composition: The breasts are heterogeneously dense, which may obscure small masses. No suspicious masses, microcalcifications or architectural distortion. Benign calcifications in each breast. MM/MM scr tomosynthesis [id number] IMPRESSION: BI-RADS: 2 - Benign FOLLOW UP: 1 Year Follow-up
== END 2025-02-24 08:07 | disposition home or self-care (01) ==
LOC: RAD 08:07
PROVIDERS: PCP Family Medicine; Visit Provider Family Medicine
DX: Z12.31 Encounter for screening mammogram for malignant neoplasm of breast (principal); R92.333 Mammographic heterogeneous density, bilateral breasts; R92.1 Mammographic calcification found on diagnostic imaging of breast
CPT/HCPCS: 77063; 77067